=== PATIENT | male | born 1965 | race Caucasian/White ===

== ENCOUNTER 2017-01-17 06:17 | Emergency (ER) | payer MEDICAID ==
[~2017-01-17] VITALS: Ht 193 cm; Wt 115.5 kg
[~2017-01-17 06:17] MED LIST: BENZ2AMP4 PO; BP MED PO; HYDR-3237 PO; HYDR12.53 PO; HYDR50TA13 PO; LORA-446 PO; NAPR220C PO; PROP10TA PO; SIMV20TA3 PO; TRAM50TA2 PO
[2017-01-17 06:18] VITALS: BP 131/92
[2017-01-17] MEDS ORDERED: LORazepam 1MG TABLET ONE (06:50)
[2017-01-17] MEDS ORDERED: LORazepam 1MG TABLET PO ONE (07:00)
== END 2017-01-17 07:26 | disposition home or self-care (01) ==
LOC: ED 07:17
DX: F41.1 Generalized anxiety disorder (principal); E78.00 Pure hypercholesterolemia, unspecified; I10 Essential (primary) hypertension
CPT/HCPCS: 99284

== ENCOUNTER 2017-05-28 10:45 | Emergency (ER) | payer MEDICAID ==
[~2017-05-28] VITALS: Ht 193 cm; Wt 112.3 kg
[2017-05-28 10:46] VITALS: BP 118/80
[2017-05-28] MEDS ORDERED: LORazepam 1MG TABLET PO ONE (11:30)
[2017-05-28] MEDS ORDERED: LORazepam 1MG TABLET ONE (11:39)
== END 2017-05-28 11:44 | disposition home or self-care (01) ==
LOC: ED 11:38
DX: F41.1 Generalized anxiety disorder (principal); I10 Essential (primary) hypertension; E78.00 Pure hypercholesterolemia, unspecified
CPT/HCPCS: 99284

== ENCOUNTER 2017-06-16 15:52 | Inpatient (IN) | payer MEDICAID ==
[~2017-06-16] VITALS: Ht 193 cm; Wt 98.3 kg
[2017-06-16] MEDS ORDERED: QUET25TA5 PO (16:26)
[2017-06-16] MEDS ORDERED: ACETAMINOPHEN 500 MG TABLET ONE (16:37)
[2017-06-16] MEDS ORDERED: LORazepam 2 MG/ML, 1ML ONE (17:00)
[2017-06-16] MEDS ORDERED: ACETAMINOPHEN 500 MG TABLET PO ONE (17:00)
[2017-06-16] MEDS ORDERED: LORazepam 2 MG/ML, 1ML IVPush ONE (17:00)
[2017-06-16] MEDS ORDERED: SODIUM CHLORIDE 0.9% 1,000ML IVBOLUS ONE (17:00)
[2017-06-16] MEDS ORDERED: SODIUM CHLORIDE FLUSH 10ML SYR IVF ONE (17:00)
[2017-06-16 17:04] LABS: BASOPHILS # (AUTO) 0.05 x10^3/uL (0-0.1); BASOPHILS % (AUTO) 0 % (0-1); EOSINOPHILS # (AUTO) 0.01 x10^3/uL (0-0.4); EOSINOPHILS % (AUTO) 0 % (1-7); LYMPHOCYTES # (AUTO) 1.86 x10^3/uL (1-3.4); LYMPHOCYTES % (AUTO) 16 % (22-44); MD NO; MEAN CORPUSCULAR HEMOGLOBIN 31.8 pg (27.5-34.5); MEAN CORPUSCULAR HGB CONC 34.4 g/dL (33.2-36.2); MEAN CORPUSCULAR VOLUME 92.3 fL (81-97); MEAN PLATELET VOLUME 7.8 fL (7.4-10.4); MONOCYTES # (AUTO) 1.15 x10^3/uL (0.2-0.8); MONOCYTES % (AUTO) 10 % (2-9); NEUTROPHILS # (AUTO) 8.78 x10^3/uL (1.8-6.8); NEUTROPHILS % (AUTO) 74 % (42-75); PLATELET COUNT 261 x10^3/uL (130-400); RED BLOOD COUNT 4.38 x10^6/uL (4.38-5.82); RED CELL DISTRIBUTION WIDTH 12.6 % (9.4-14.8)
[2017-06-16] MEDS ORDERED: PIPERACILLIN/TAZO/PMX 3.375GM 50 ML ONE (17:10)
[2017-06-16 17:17] LABS: ALANINE AMINOTRANSFERASE 22 U/L (12-78); ALBUMIN 3.6 g/dL (3.4-5.0); ANION GAP 8 mmol/L (5-15); CALCIUM 8.8 mg/dL (8.5-10.1); CHLORIDE 105 mmol/L (98-107); CREATININE 1.02 mg/dL (0.7-1.3)
[2017-06-16 17:19] LABS: ALKALINE PHOSPHATASE 103 U/L (45-117); TOTAL PROTEIN 7.3 g/dL (6.4-8.2)
[2017-06-16] MEDS ORDERED: PIPERACILLIN/TAZO/PMX 3.375GM 50 ML IVPB ONE (17:30)
[2017-06-16] MEDS ORDERED: VANCOMYCIN PER PHARMACY MC ONE (17:30)
[2017-06-16] MEDS ORDERED: THIAMINE 100MG TABLET PO ONE (17:30)
[2017-06-16] MEDS ORDERED: VANCOMYCIN 2,000 MG in SODIUM CHLORIDE 0.9% 500 ML IV ONE (17:30)
[2017-06-16] MEDS ORDERED: THIAMINE 200 MG in SODIUM CHLORIDE 0.9% 50 ML IV ONE (17:30)
[2017-06-16] MEDS ORDERED: THIAMINE 100MG TABLET ONE (17:40)
[2017-06-16 18:32] LABS: HCT (SEDRATE) 40.4 % (39.2-51.8)
[2017-06-16 19:55] VITALS: BP 117/56
[2017-06-16] MEDS ORDERED: VANCOMYCIN PER PHARMACY MC PRN (20:00)
[2017-06-16] MEDS ORDERED: DIPHENHYDRAMINE 25 MG CAPSULE PO PRN (20:00)
[2017-06-16] MEDS ORDERED: hydrALAzine 20 MG/ML, 1ML IVPush PRN (20:00)
[2017-06-16] MEDS ORDERED: DOCUSATE 100 MG CAPSULE PO PRN (20:00)
[2017-06-16] MEDS ORDERED: PHARMACOKINETIC CONSULTATION MC ONE (20:30)
[2017-06-16] MEDS ORDERED: PHARMACOKINETIC MONITORING MC PRN (20:30)
[2017-06-16] MEDS: SODIUM CHLORIDE 0.9% 1,000 ML IV SCH (21:00)
[2017-06-16] MEDS ORDERED: PERMETHRIN CRM 5%, 60GM TP SCH (22:00)
[2017-06-16] MEDS: NICOTINE 7 MG/24 HR PATCH.TD24 TD SCH (22:00)
[2017-06-16] MEDS: ACETAMINOPHEN 325 MG TABLET PO PRN (22:31)
[2017-06-16] MEDS: LORazepam 1MG TABLET PO PRN (22:31)
[2017-06-16 23:14] LABS: MICROSCOPIC NOT IND
[2017-06-16 23:15] LABS: CULTURE INDICATED? NO
[2017-06-16 23:24] LABS: AMPHETAMINE SCREEN, URINE Negative (Negative); BARBITURATE SCREEN, URINE Negative (Negative); BENZODIAZEPINE SCREEN, URINE Negative (Negative); CANNABINOID SCREEN, URINE Negative (Negative); COCAINE SCREEN, URINE Negative (Negative); METHADONE SCREEN, URINE Negative (Negative); OPIATE SCREEN, URINE Negative (Negative)
[2017-06-17] MEDS: PIPERACILLIN/TAZO/PMX 3.375GM 50 ML IV SCH ×3 (00:54→17:42)
[2017-06-17 03:30] VITALS: BP 108/61
[2017-06-17] MEDS: SODIUM CHLORIDE 0.9% 1,000 ML IV SCH ×2 (03:54→17:43)
[2017-06-17 05:25] LABS: BASOPHILS # (AUTO) 0.02 x10^3/uL (0-0.1); BASOPHILS % (AUTO) 0 % (0-1); EOSINOPHILS # (AUTO) 0.07 x10^3/uL (0-0.4); EOSINOPHILS % (AUTO) 1 % (1-7); LYMPHOCYTES # (AUTO) 1.63 x10^3/uL (1-3.4); LYMPHOCYTES % (AUTO) 21 % (22-44); MD NO; MEAN CORPUSCULAR HEMOGLOBIN 31.9 pg (27.5-34.5); MEAN CORPUSCULAR HGB CONC 34.4 g/dL (33.2-36.2); MEAN CORPUSCULAR VOLUME 92.6 fL (81-97); MEAN PLATELET VOLUME 7.7 fL (7.4-10.4); MONOCYTES # (AUTO) 0.96 x10^3/uL (0.2-0.8); MONOCYTES % (AUTO) 12 % (2-9); NEUTROPHILS # (AUTO) 5.03 x10^3/uL (1.8-6.8); NEUTROPHILS % (AUTO) 65 % (42-75); PLATELET COUNT 192 x10^3/uL (130-400); RED BLOOD COUNT 3.75 x10^6/uL (4.38-5.82); RED CELL DISTRIBUTION WIDTH 12.9 % (9.4-14.8)
[2017-06-17 05:27] LABS: ANION GAP 8 mmol/L (5-15); CHLORIDE 109 mmol/L (98-107)
[2017-06-17 05:30] LABS: CREATININE 0.87 mg/dL (0.7-1.3)
[2017-06-17] MEDS: VANCOMYCIN 2,000 MG in SODIUM CHLORIDE 0.9% 500 ML IV SCH ×2 (05:36→21:20)
[2017-06-17] MEDS: PROPRANOLOL 10 MG TABLET PO SCH ×2 (06:29→18:00)
[2017-06-17 07:49] VITALS: BP 123/71
[2017-06-17] MEDS ORDERED: PERMETHRIN CRM 5%, 60GM TP SCH (12:30)
[2017-06-17 12:41] VITALS: BP 111/69
[2017-06-17 18:51] VITALS: BP 106/67
[2017-06-17] MEDS ORDERED: THIAMINE 100MG TABLET PO ONE (21:00)
[2017-06-17] MEDS: NICOTINE 7 MG/24 HR PATCH.TD24 TD SCH (22:00)
[2017-06-17] MEDS: ACETAMINOPHEN 325 MG TABLET PO PRN (23:20)
[2017-06-17] MEDS: LORazepam 1MG TABLET PO PRN (23:21)
[2017-06-18] MEDS: SODIUM CHLORIDE 0.9% 1,000 ML IV SCH ×3 (01:10→23:00)
[2017-06-18] MEDS: PIPERACILLIN/TAZO/PMX 3.375GM 50 ML IV SCH ×3 (01:10→20:13)
[2017-06-18 05:40] LABS: BASOPHILS # (AUTO) 0.04 x10^3/uL (0-0.1); BASOPHILS % (AUTO) 1 % (0-1); EOSINOPHILS # (AUTO) 0.07 x10^3/uL (0-0.4); EOSINOPHILS % (AUTO) 1 % (1-7); LYMPHOCYTES % (AUTO) 31 % (22-44); MD NO; MEAN CORPUSCULAR HEMOGLOBIN 31.7 pg (27.5-34.5); MEAN CORPUSCULAR HGB CONC 34.2 g/dL (33.2-36.2); MEAN CORPUSCULAR VOLUME 92.7 fL (81-97); MEAN PLATELET VOLUME 7.8 fL (7.4-10.4); MONOCYTES # (AUTO) 0.58 x10^3/uL (0.2-0.8); MONOCYTES % (AUTO) 11 % (2-9); NEUTROPHILS # (AUTO) 3.09 x10^3/uL (1.8-6.8); NEUTROPHILS % (AUTO) 56 % (42-75); PLATELET COUNT 187 x10^3/uL (130-400); RED BLOOD COUNT 3.83 x10^6/uL (4.38-5.82); RED CELL DISTRIBUTION WIDTH 12.8 % (9.4-14.8)
[2017-06-18 05:53] LABS: ALBUMIN 2.8 g/dL (3.4-5.0); ANION GAP 5 mmol/L (5-15); CHLORIDE 110 mmol/L (98-107)
[2017-06-18 05:56] LABS: ALANINE AMINOTRANSFERASE 17 U/L (12-78); ALKALINE PHOSPHATASE 78 U/L (45-117); BILIRUBIN,TOTAL 0.5 mg/dL (0.2-1.0); CREATININE 0.85 mg/dL (0.7-1.3); TOTAL PROTEIN 6.1 g/dL (6.4-8.2)
[2017-06-18] MEDS: PROPRANOLOL 10 MG TABLET PO SCH ×2 (06:28→17:50)
[2017-06-18 06:30] VITALS: BP 113/65
[2017-06-18 08:39] VITALS: BP 122/81
[2017-06-18] MEDS: VANCOMYCIN 2,000 MG in SODIUM CHLORIDE 0.9% 500 ML IV SCH ×2 (09:11→22:32)
[2017-06-18] MEDS: LORazepam 1MG TABLET PO PRN ×2 (09:11→22:30)
[2017-06-18 13:33] VITALS: BP 103/57
[2017-06-18] MEDS ORDERED: GADOBUTROL 10 MMOL/10 ML PFS ONE (17:13)
[2017-06-18 20:42] VITALS: BP 110/73
[2017-06-18] MEDS: NICOTINE 7 MG/24 HR PATCH.TD24 TD SCH (22:00)
[2017-06-18] MEDS: ACETAMINOPHEN 325 MG TABLET PO PRN (22:30)
[2017-06-18] MEDS: DIPHENHYDRAMINE 25 MG CAPSULE PO PRN (22:30)
[2017-06-19] MEDS: PIPERACILLIN/TAZO/PMX 3.375GM 50 ML IV SCH ×3 (04:50→20:30)
[2017-06-19 05:10] VITALS: BP 114/75
[2017-06-19 05:27] LABS: BASOPHILS # (AUTO) 0.04 x10^3/uL (0-0.1); BASOPHILS % (AUTO) 1 % (0-1); EOSINOPHILS % (AUTO) 2 % (1-7); LYMPHOCYTES % (AUTO) 34 % (22-44); MD NO; MEAN CORPUSCULAR HEMOGLOBIN 31.4 pg (27.5-34.5); MEAN CORPUSCULAR HGB CONC 34.1 g/dL (33.2-36.2); MEAN CORPUSCULAR VOLUME 91.9 fL (81-97); MEAN PLATELET VOLUME 7.9 fL (7.4-10.4); MONOCYTES # (AUTO) 0.44 x10^3/uL (0.2-0.8); MONOCYTES % (AUTO) 8 % (2-9); NEUTROPHILS % (AUTO) 55 % (42-75); PLATELET COUNT 199 x10^3/uL (130-400); RED BLOOD COUNT 3.82 x10^6/uL (4.38-5.82); RED CELL DISTRIBUTION WIDTH 12.3 % (9.4-14.8)
[2017-06-19 05:41] LABS: CHLORIDE 110 mmol/L (98-107)
[2017-06-19 05:46] LABS: ALANINE AMINOTRANSFERASE 20 U/L (12-78); ALBUMIN 2.8 g/dL (3.4-5.0); ALKALINE PHOSPHATASE 79 U/L (45-117); ANION GAP 5 mmol/L (5-15); BILIRUBIN,TOTAL 0.5 mg/dL (0.2-1.0); CREATININE 0.79 mg/dL (0.7-1.3); TOTAL PROTEIN 6.2 g/dL (6.4-8.2)
[2017-06-19] MEDS: PROPRANOLOL 10 MG TABLET PO SCH ×2 (06:17→18:21)
[2017-06-19] MEDS: SODIUM CHLORIDE 0.9% 1,000 ML IV SCH (07:00)
[2017-06-19] MEDS: VANCOMYCIN 2,000 MG in SODIUM CHLORIDE 0.9% 500 ML IV SCH ×2 (09:13→23:53)
[2017-06-19 09:35] VITALS: BP 123/80
[2017-06-19 12:20] VITALS: BP 129/84
[2017-06-19] MEDS: DIPHENHYDRAMINE 25 MG CAPSULE PO PRN ×2 (13:27→20:39)
[2017-06-19] MEDS: LORazepam 1MG TABLET PO PRN ×3 (13:27→22:06)
[2017-06-19] MEDS: ACETAMINOPHEN 325 MG TABLET PO PRN ×2 (14:39→20:39)
[2017-06-19] MEDS: NICOTINE 7 MG/24 HR PATCH.TD24 TD SCH (20:39)
[2017-06-19 20:43] VITALS: BP 140/90
[2017-06-20] MEDS: PIPERACILLIN/TAZO/PMX 3.375GM 50 ML IV SCH ×3 (04:18→20:49)
[2017-06-20 05:28] LABS: BASOPHILS # (AUTO) 0.06 x10^3/uL (0-0.1); BASOPHILS % (AUTO) 1 % (0-1); EOSINOPHILS # (AUTO) 0.18 x10^3/uL (0-0.4); EOSINOPHILS % (AUTO) 3 % (1-7); LYMPHOCYTES # (AUTO) 1.81 x10^3/uL (1-3.4); LYMPHOCYTES % (AUTO) 32 % (22-44); MD NO; MEAN CORPUSCULAR HEMOGLOBIN 31.7 pg (27.5-34.5); MEAN CORPUSCULAR HGB CONC 34.5 g/dL (33.2-36.2); MEAN CORPUSCULAR VOLUME 92.1 fL (81-97); MEAN PLATELET VOLUME 7.7 fL (7.4-10.4); MONOCYTES # (AUTO) 0.51 x10^3/uL (0.2-0.8); MONOCYTES % (AUTO) 9 % (2-9); NEUTROPHILS % (AUTO) 55 % (42-75); PLATELET COUNT 237 x10^3/uL (130-400); RED BLOOD COUNT 4.06 x10^6/uL (4.38-5.82); RED CELL DISTRIBUTION WIDTH 12.6 % (9.4-14.8)
[2017-06-20] MEDS: LORazepam 1MG TABLET PO PRN ×4 (05:40→22:15)
[2017-06-20] MEDS: PROPRANOLOL 10 MG TABLET PO SCH ×2 (05:40→18:23)
[2017-06-20 05:41] LABS: ANION GAP 8 mmol/L (5-15); CALCIUM 8.4 mg/dL (8.5-10.1); CHLORIDE 111 mmol/L (98-107); CREATININE 0.93 mg/dL (0.7-1.3)
[2017-06-20 08:43] VITALS: BP 139/72
[2017-06-20 12:49] VITALS: BP 110/71
[2017-06-20] MEDS: ACETAMINOPHEN 325 MG TABLET PO PRN (17:50)
[2017-06-20 18:10] VITALS: BP 130/91
[2017-06-20] MEDS: VANCOMYCIN 2,000 MG in SODIUM CHLORIDE 0.9% 500 ML IV SCH (18:23)
[2017-06-20 20:46] VITALS: BP 127/81
[2017-06-20] MEDS: NICOTINE 7 MG/24 HR PATCH.TD24 TD SCH (22:15)
[2017-06-21 01:48] VITALS: BP 120/75
[2017-06-21 05:06] VITALS: BP 123/88
[2017-06-21] MEDS: PIPERACILLIN/TAZO/PMX 3.375GM 50 ML IV SCH (05:09)
[2017-06-21] MEDS: PROPRANOLOL 10 MG TABLET PO SCH ×2 (05:10→18:00)
[2017-06-21 08:25] VITALS: BP 127/89
[2017-06-21] MEDS: LORazepam 1MG TABLET PO PRN ×3 (08:56→23:58)
[2017-06-21] MEDS: ACETAMINOPHEN 325 MG TABLET PO PRN ×3 (08:56→23:59)
[2017-06-21] MEDS: CEFTAROLINE 600 MG in SODIUM CHLORIDE 0.9% 100 ML IV SCH ×2 (10:09→18:26)
[2017-06-21] MEDS ORDERED: QUETIAPINE 100MG TABLET PO SCH (12:00)
[2017-06-21] MEDS: FLUOXETINE HCL 20 MG CAPSULE PO SCH (12:33)
[2017-06-21 13:53] VITALS: BP 104/66
[2017-06-21 19:02] VITALS: BP 113/77
[2017-06-21] MEDS: QUETIAPINE 100MG TABLET PO SCH (20:06)
[2017-06-21] MEDS: DIPHENHYDRAMINE 25 MG CAPSULE PO PRN ×2 (20:06→23:59)
[2017-06-21] MEDS: NICOTINE 7 MG/24 HR PATCH.TD24 TD SCH (22:33)
[2017-06-22] VITALS: BP 94/61
[2017-06-22 04:31] VITALS: BP 103/71
[2017-06-22] MEDS: PROPRANOLOL 10 MG TABLET PO SCH ×2 (05:42→17:49)
[2017-06-22] MEDS: LORazepam 1MG TABLET PO PRN ×3 (05:42→21:43)
[2017-06-22] MEDS: QUETIAPINE 100MG TABLET PO SCH ×3 (05:42→19:53)
[2017-06-22] MEDS: CEFTAROLINE 600 MG in SODIUM CHLORIDE 0.9% 100 ML IV SCH ×3 (05:42→21:41)
[2017-06-22] MEDS: FLUOXETINE HCL 20 MG CAPSULE PO SCH (08:52)
[2017-06-22 09:17] VITALS: BP 112/78
[2017-06-22 15:15] VITALS: BP 118/80
[2017-06-22 19:10] VITALS: BP 113/78
[2017-06-22] MEDS: DIPHENHYDRAMINE 25 MG CAPSULE PO PRN (19:53)
[2017-06-22] MEDS: NICOTINE 7 MG/24 HR PATCH.TD24 TD SCH (21:41)
[2017-06-23] VITALS: BP 106/71
[2017-06-23 05:56] VITALS: BP 98/75
[2017-06-23] MEDS: PROPRANOLOL 10 MG TABLET PO SCH ×2 (05:57→17:41)
[2017-06-23] MEDS: CEFTAROLINE 600 MG in SODIUM CHLORIDE 0.9% 100 ML IV SCH (05:57)
[2017-06-23] MEDS: QUETIAPINE 100MG TABLET PO SCH ×3 (05:58→20:29)
[2017-06-23] MEDS: LORazepam 1MG TABLET PO PRN (05:58)
[2017-06-23 07:20] VITALS: BP 128/88
[2017-06-23] MEDS: FLUOXETINE HCL 20 MG CAPSULE PO SCH (09:08)
[2017-06-23] MEDS: CEFAZOLIN PMX 2GM/50ML 50 ML IVPB SCH ×2 (10:48→17:29)
[2017-06-23 13:41] VITALS: BP 100/65
[2017-06-23 20:00] VITALS: BP 100/63
[2017-06-23] MEDS: ACETAMINOPHEN 325 MG TABLET PO PRN (20:29)
[2017-06-23] MEDS: NICOTINE 7 MG/24 HR PATCH.TD24 TD SCH (22:28)
[2017-06-24] MEDS: CEFAZOLIN PMX 2GM/50ML 50 ML IVPB SCH ×3 (01:38→17:42)
[2017-06-24 02:05] VITALS: BP 107/64
[2017-06-24 05:24] LABS: BASOPHILS # (AUTO) 0.05 x10^3/uL (0-0.1); BASOPHILS % (AUTO) 1 % (0-1); CHLORIDE 109 mmol/L (98-107); EOSINOPHILS % (AUTO) 4 % (1-7); LYMPHOCYTES # (AUTO) 2.12 x10^3/uL (1-3.4); LYMPHOCYTES % (AUTO) 37 % (22-44); MD NO; MEAN CORPUSCULAR HGB CONC 33.9 g/dL (33.2-36.2); MEAN CORPUSCULAR VOLUME 91.7 fL (81-97); MEAN PLATELET VOLUME 7.2 fL (7.4-10.4); MONOCYTES # (AUTO) 0.49 x10^3/uL (0.2-0.8); MONOCYTES % (AUTO) 9 % (2-9); NEUTROPHILS # (AUTO) 2.91 x10^3/uL (1.8-6.8); NEUTROPHILS % (AUTO) 51 % (42-75); PLATELET COUNT 268 x10^3/uL (130-400); RED BLOOD COUNT 4.55 x10^6/uL (4.38-5.82)
[2017-06-24 05:32] LABS: ALANINE AMINOTRANSFERASE 25 U/L (12-78); ALBUMIN 3.2 g/dL (3.4-5.0); ALKALINE PHOSPHATASE 89 U/L (45-117); ANION GAP 8 mmol/L (5-15); BILIRUBIN,TOTAL 0.8 mg/dL (0.2-1.0); C-REACTIVE PROTEIN, QUANT 0.21 mg/dL (0.02-0.49); CALCIUM 8.5 mg/dL (8.5-10.1); CREATININE 0.98 mg/dL (0.7-1.3); TOTAL PROTEIN 6.8 g/dL (6.4-8.2)
[2017-06-24 05:51] LABS: HCT (SEDRATE) 41.7 % (39.2-51.8)
[2017-06-24] MEDS: QUETIAPINE 100MG TABLET PO SCH ×3 (06:01→21:21)
[2017-06-24 06:04] VITALS: BP 125/87
[2017-06-24] MEDS: PROPRANOLOL 10 MG TABLET PO SCH ×2 (06:10→18:22)
[2017-06-24 07:10] VITALS: BP 107/74
[2017-06-24] MEDS: FLUOXETINE HCL 20 MG CAPSULE PO SCH (09:11)
[2017-06-24 12:43] VITALS: BP 114/75
[2017-06-24] MEDS: LORazepam 1MG TABLET PO PRN ×2 (12:57→19:03)
[2017-06-24 20:17] VITALS: BP 117/82
[2017-06-24] MEDS: NICOTINE 7 MG/24 HR PATCH.TD24 TD SCH (21:23)
[2017-06-25 01:14] VITALS: BP 115/76
[2017-06-25] MEDS: LORazepam 1MG TABLET PO PRN ×2 (01:26→09:11)
[2017-06-25] MEDS: CEFAZOLIN PMX 2GM/50ML 50 ML IVPB SCH ×3 (01:27→18:11)
[2017-06-25] MEDS: PROPRANOLOL 10 MG TABLET PO SCH ×2 (06:11→18:15)
[2017-06-25] MEDS: QUETIAPINE 100MG TABLET PO SCH ×3 (06:12→20:47)
[2017-06-25 06:13] VITALS: BP 128/89
[2017-06-25 07:07] VITALS: BP 124/83
[2017-06-25] MEDS: FLUOXETINE HCL 20 MG CAPSULE PO SCH (09:11)
[2017-06-25 13:15] VITALS: BP 114/76
[2017-06-25] MEDS ORDERED: LORazepam 1MG TABLET PO PRN (16:00)
[2017-06-25 19:45] VITALS: BP 106/73
[2017-06-25] MEDS: DIPHENHYDRAMINE 25 MG CAPSULE PO PRN (20:47)
[2017-06-25] MEDS: NICOTINE 7 MG/24 HR PATCH.TD24 TD SCH (20:47)
[2017-06-25] MEDS: ACETAMINOPHEN 325 MG TABLET PO PRN (20:51)
[2017-06-26 01:11] VITALS: BP 113/75
[2017-06-26] MEDS: CEFAZOLIN PMX 2GM/50ML 50 ML IVPB SCH ×2 (02:24→09:37)
[2017-06-26] MEDS: QUETIAPINE 100MG TABLET PO SCH (05:41)
[2017-06-26] MEDS: PROPRANOLOL 10 MG TABLET PO SCH (05:41)
[2017-06-26 07:12] VITALS: BP 108/70
[2017-06-26] MEDS: FLUOXETINE HCL 20 MG CAPSULE PO SCH (09:34)
[2017-06-26] MEDS ORDERED: LORazepam 1MG TABLET PO PRN (11:00)
== END 2017-06-26 13:10 | disposition left against medical advice (07) | DRG 540 ==
LOC: ED 17:47 → EDIP 18:58 → 4NOR 19:55
PROVIDERS: ADMIT Hospitalist; ATTEND Hospitalist
PROC: 02HV33Z Insertion of Infusion Device into Superior Vena Cava, Percutaneous Approach (ICD-10-PCS; principal; 2017-06-22)
PROC: B548ZZA Ultrasonography of Superior Vena Cava, Guidance (ICD-10-PCS; 2017-06-22)
DX: M86.172 Other acute osteomyelitis, left ankle and foot (principal); R78.81 Bacteremia; I11.9 Hypertensive heart disease without heart failure; F25.9 Schizoaffective disorder, unspecified; B86 Scabies; L97.519 Non-pressure chronic ulcer of other part of right foot with unspecified severity; D63.8 Anemia in other chronic diseases classified elsewhere; F10.239 Alcohol dependence with withdrawal, unspecified; F41.1 Generalized anxiety disorder; G89.29 Other chronic pain; L03.032 Cellulitis of left toe; L97.529 Non-pressure chronic ulcer of other part of left foot with unspecified severity; B95.7 Other staphylococcus as the cause of diseases classified elsewhere; B96.89 Other specified bacterial agents as the cause of diseases classified elsewhere; E78.00 Pure hypercholesterolemia, unspecified; F17.210 Nicotine dependence, cigarettes, uncomplicated; M19.90 Unspecified osteoarthritis, unspecified site; Z59.0 Homelessness; Z82.49 Family history of ischemic heart disease and other diseases of the circulatory system; Z83.3 Family history of diabetes mellitus; Z53.21 Procedure and treatment not carried out due to patient leaving prior to being seen by health care provider
CPT/HCPCS: 36415; 36569; 71045; 76937; 77001; 80048; 80053; 80202; 80307; 81003; 83605; 83735; 84100; 85025; 85651; 86140; 87040; 87070; 87077; 87147; 87186; 87205; 93005; 93922; 99285; A9585; J0690; J0712; J2543; J3370; C1751; J2060; J7030; J7040; Q0163

== ENCOUNTER 2017-10-17 17:07 | Inpatient (IN) | payer MEDICAID ==
[~2017-10-17] VITALS: Ht 193 cm; Wt 99.0 kg
[~2017-10-17 17:07] MED LIST changes: +QUET25TA5 PO
[2017-10-17] MEDS ORDERED: SODIUM CHLORIDE FLUSH 10ML SYR IVF ONE ×2 (17:30→19:00)
[2017-10-17 17:40] LABS: BASOPHILS # (AUTO) 0.02 x10^3/uL (0-0.1); BASOPHILS % (AUTO) 0 % (0-1); EOSINOPHILS # (AUTO) 0.21 x10^3/uL (0-0.4); EOSINOPHILS % (AUTO) 3 % (1-7); LYMPHOCYTES # (AUTO) 2.06 x10^3/uL (1-3.4); LYMPHOCYTES % (AUTO) 27 % (22-44); MD NO; MEAN CORPUSCULAR HEMOGLOBIN 30.8 pg (27.5-34.5); MEAN CORPUSCULAR VOLUME 90.6 fL (81-97); MEAN PLATELET VOLUME 7.7 fL (7.4-10.4); MONOCYTES # (AUTO) 0.77 x10^3/uL (0.2-0.8); MONOCYTES % (AUTO) 10 % (2-9); NEUTROPHILS # (AUTO) 4.51 x10^3/uL (1.8-6.8); NEUTROPHILS % (AUTO) 60 % (42-75); PLATELET COUNT 214 x10^3/uL (130-400); RED BLOOD COUNT 4.19 x10^6/uL (4.38-5.82)
[2017-10-17 17:49] LABS: ALBUMIN 3.3 g/dL (3.4-5.0); ANION GAP 7 mmol/L (5-15); CALCIUM 8.3 mg/dL (8.5-10.1); CHLORIDE 110 mmol/L (98-107); CREATININE 0.93 mg/dL (0.7-1.3)
[2017-10-17] MEDS ORDERED: PHARMACOKINETIC CONSULTATION MC ONE ×2 (19:00→23:45)
[2017-10-17] MEDS ORDERED: MORPHINE SULFATE 4 MG/ML, 1ML IVPush PRN (19:00)
[2017-10-17] MEDS ORDERED: KETOROLAC 30 MG/1 ML IVPush ONE (19:00)
[2017-10-17] MEDS ORDERED: VANCOMYCIN PER PHARMACY IV ONE (19:00)
[2017-10-17] MEDS ORDERED: VANCOMYCIN 2,000 MG in SODIUM CHLORIDE 0.9% 500 ML IV ONE (19:00)
[2017-10-17] MEDS ORDERED: SODIUM CHLORIDE 0.9% 1,000ML IVBOLUS ONE (19:00)
[2017-10-17 19:02] LABS: HCT (SEDRATE) 37.4 % (39.2-51.8)
[2017-10-17] MEDS ORDERED: KETOROLAC 30 MG/1 ML ONE (19:12)
[2017-10-17] MEDS ORDERED: MORPHINE SULFATE 4 MG/ML, 1ML ONE (19:13)
[2017-10-17 21:30] VITALS: BP 145/84
[2017-10-17] MEDS ORDERED: LABETALOL 5MG/ML, 20ML IVPush PRN (23:30)
[2017-10-17] MEDS ORDERED: BISACODYL 10 MG SUPP PR PRN (23:30)
[2017-10-17] MEDS ORDERED: VANCOMYCIN PER PHARMACY MC PRN (23:30)
[2017-10-17] MEDS ORDERED: ONDANSETRON 2MG/ML, 2ML IVPush PRN (23:30)
[2017-10-17] MEDS ORDERED: ONDANSETRON ODT 4 MG PO PRN (23:30)
[2017-10-17] MEDS ORDERED: POLYETHYLENE GLYCOL 17 GM PACKET PO PRN (23:30)
[2017-10-17] MEDS: ENOXAPARIN 40 MG/0.4 ML SQ SCH (23:30)
[2017-10-17] MEDS ORDERED: ENALAPRILAT 1.25 MG/ML, 2ML IVPush PRN (23:30)
[2017-10-17] MEDS ORDERED: PHARMACOKINETIC MONITORING MC PRN (23:45)
[2017-10-18 01:01] VITALS: BP 153/94
[2017-10-18 01:33] LABS: HEMOGLOBIN A1C 5.1 % (4.2-6.3)
[2017-10-18] MEDS: VANCOMYCIN 2,000 MG in SODIUM CHLORIDE 0.9% 500 ML IV SCH ×2 (05:53→17:45)
[2017-10-18 06:23] LABS: AMPHETAMINE SCREEN, URINE Negative (Negative); BARBITURATE SCREEN, URINE Negative (Negative); BENZODIAZEPINE SCREEN, URINE Negative (Negative); CANNABINOID SCREEN, URINE Negative (Negative); COCAINE SCREEN, URINE Negative (Negative); METHADONE SCREEN, URINE Negative (Negative); OPIATE SCREEN, URINE Positive (Negative)
[2017-10-18 06:39] VITALS: BP 133/74
[2017-10-18] MEDS ORDERED: LORazepam 2 MG/ML, 1ML IVPush ONE (09:30)
[2017-10-18] MEDS ORDERED: GADOBUTROL 10 MMOL/10 ML PFS ONE (09:55)
[2017-10-18] MEDS: PIPERACILLIN/TAZO/PMX 3.375GM 50 ML IV SCH ×3 (10:30→22:11)
[2017-10-18] MEDS: HYDROcodone/APAP 5/325 TABLET PO PRN ×3 (10:33→22:20)
[2017-10-18 14:00] VITALS: BP 145/91
[2017-10-18 19:53] VITALS: BP 139/78
[2017-10-18] MEDS: ENOXAPARIN 40 MG/0.4 ML SQ SCH (22:11)
[2017-10-19 01:12] VITALS: BP 137/80
[2017-10-19] MEDS: PIPERACILLIN/TAZO/PMX 3.375GM 50 ML IV SCH ×4 (04:02→23:08)
[2017-10-19] MEDS: VANCOMYCIN 2,000 MG in SODIUM CHLORIDE 0.9% 500 ML IV SCH ×2 (05:59→18:22)
[2017-10-19 06:12] LABS: ANION GAP 8 mmol/L (5-15); CALCIUM 7.9 mg/dL (8.5-10.1); CHLORIDE 111 mmol/L (98-107); CREATININE 0.78 mg/dL (0.7-1.3)
[2017-10-19 06:20] LABS: BASOPHILS # (AUTO) 0.04 x10^3/uL (0-0.1); BASOPHILS % (AUTO) 1 % (0-1); EOSINOPHILS # (AUTO) 0.25 x10^3/uL (0-0.4); EOSINOPHILS % (AUTO) 6 % (1-7); LYMPHOCYTES # (AUTO) 1.48 x10^3/uL (1-3.4); LYMPHOCYTES % (AUTO) 33 % (22-44); MD NO; MEAN CORPUSCULAR HGB CONC 33.9 g/dL (33.2-36.2); MEAN CORPUSCULAR VOLUME 91.3 fL (81-97); MEAN PLATELET VOLUME 7.7 fL (7.4-10.4); MONOCYTES # (AUTO) 0.49 x10^3/uL (0.2-0.8); MONOCYTES % (AUTO) 11 % (2-9); NEUTROPHILS % (AUTO) 49 % (42-75); PLATELET COUNT 164 x10^3/uL (130-400); RED BLOOD COUNT 3.78 x10^6/uL (4.38-5.82); RED CELL DISTRIBUTION WIDTH 13.9 % (9.4-14.8)
[2017-10-19 07:07] VITALS: BP 132/86
[2017-10-19] MEDS ORDERED: MIDAZOLAM 1 MG/ML, 2ML ONE ×2 (08:45→09:45)
[2017-10-19] MEDS ORDERED: FENTANYL PF 100 MCG/2ML ONE ×2 (08:45→09:30)
[2017-10-19] MEDS ORDERED: KETOROLAC 30 MG/1 ML ONE (08:46)
[2017-10-19] MEDS ORDERED: ONDANSETRON 2MG/ML, 2ML ONE (08:46)
[2017-10-19] MEDS ORDERED: PROPOFOL 10 MG/ML, 20ML ONE (08:46)
[2017-10-19] MEDS ORDERED: EPHEDRINE 50 MG/ML, 1ML IVPush PRN (09:30)
[2017-10-19] MEDS ORDERED: HALOPERIDOL 5 MG/ML IV PRN (09:30)
[2017-10-19] MEDS ORDERED: OXYcodone 5 MG/5 ML ORAL.SOL UDC ONE (09:30)
[2017-10-19] MEDS ORDERED: hydrALAzine 20 MG/ML, 1ML IV PRN (09:30)
[2017-10-19] MEDS ORDERED: ALBUTEROL SULFATE 2.5 MG/3 ML NPPB PRN (09:30)
[2017-10-19] MEDS ORDERED: PROMETHAZINE 25 MG/ML, 1ML IV PRN (09:30)
[2017-10-19] MEDS ORDERED: ALBUTEROL/IPRATROPIUM 2.5MG/0.5MG, 3 ML NPPB PRN (09:30)
[2017-10-19] MEDS ORDERED: MIDAZOLAM 1 MG/ML, 2ML IV PRN (09:30)
[2017-10-19] MEDS ORDERED: ACETAMINOPHEN 325 MG TABLET PO PRN (09:30)
[2017-10-19] MEDS ORDERED: ONDANSETRON ODT 8 MG PO PRN (09:30)
[2017-10-19] MEDS ORDERED: LABETALOL 5MG/ML, 20ML IV PRN (09:30)
[2017-10-19] MEDS ORDERED: HYDROcodone/APAP 7.5-325MG/15ML UDC PO PRN (09:30)
[2017-10-19] MEDS ORDERED: MEPERIDINE/PF 25MG/0.5ML IVPush PRN (09:30)
[2017-10-19] MEDS: FENTANYL PF 100 MCG/2ML IV PRN ×2 (09:33→09:39)
[2017-10-19] MEDS: OXYcodone 5 MG/5 ML ORAL.SOL UDC PO PRN ×2 (09:35→17:04)
[2017-10-19] MEDS ORDERED: HYDROmorphone 2 MG/ML, 1ML ONE (09:45)
[2017-10-19] MEDS: HYDROmorphone 1 MG/ML, 1ML IV PRN ×3 (09:58→10:15)
[2017-10-19 14:21] VITALS: BP 105/70
[2017-10-19 18:33] VITALS: BP 127/79
[2017-10-19] MEDS: HYDROcodone/APAP 5/325 TABLET PO PRN (23:08)
[2017-10-19] MEDS: ENOXAPARIN 40 MG/0.4 ML SQ SCH (23:08)
[2017-10-20 01:28] VITALS: BP 125/76
[2017-10-20] MEDS: PIPERACILLIN/TAZO/PMX 3.375GM 50 ML IV SCH ×4 (05:03→20:18)
[2017-10-20 06:00] LABS: BASOPHILS # (AUTO) 0.02 x10^3/uL (0-0.1); BASOPHILS % (AUTO) 1 % (0-1); EOSINOPHILS # (AUTO) 0.22 x10^3/uL (0-0.4); EOSINOPHILS % (AUTO) 5 % (1-7); LYMPHOCYTES # (AUTO) 1.46 x10^3/uL (1-3.4); LYMPHOCYTES % (AUTO) 34 % (22-44); MD NO; MEAN CORPUSCULAR HEMOGLOBIN 30.6 pg (27.5-34.5); MEAN CORPUSCULAR HGB CONC 33.9 g/dL (33.2-36.2); MEAN CORPUSCULAR VOLUME 90.2 fL (81-97); MEAN PLATELET VOLUME 7.4 fL (7.4-10.4); MONOCYTES # (AUTO) 0.43 x10^3/uL (0.2-0.8); MONOCYTES % (AUTO) 10 % (2-9); NEUTROPHILS # (AUTO) 2.22 x10^3/uL (1.8-6.8); NEUTROPHILS % (AUTO) 51 % (42-75); PLATELET COUNT 170 x10^3/uL (130-400); RED BLOOD COUNT 3.77 x10^6/uL (4.38-5.82); RED CELL DISTRIBUTION WIDTH 13.1 % (9.4-14.8)
[2017-10-20 06:01] LABS: ANION GAP 6 mmol/L (5-15); CALCIUM 8.2 mg/dL (8.5-10.1); CHLORIDE 111 mmol/L (98-107); CREATININE 0.84 mg/dL (0.7-1.3)
[2017-10-20 06:03] LABS: VANCOMYCIN,TROUGH 18.6 mcg/mL (5.0-10.0)
[2017-10-20] MEDS: VANCOMYCIN 2,000 MG in SODIUM CHLORIDE 0.9% 500 ML IV SCH ×2 (06:29→23:47)
[2017-10-20 07:22] VITALS: BP 138/78
[2017-10-20] MEDS: HYDROcodone/APAP 5/325 TABLET PO PRN (08:13)
[2017-10-20 13:07] VITALS: BP 166/95
[2017-10-20] MEDS ORDERED: LORazepam 2 MG/ML, 1ML IVPush ONE (13:30)
[2017-10-20 19:31] VITALS: BP 153/91
[2017-10-20] MEDS: ENOXAPARIN 40 MG/0.4 ML SQ SCH (20:18)
[2017-10-21] MEDS: PIPERACILLIN/TAZO/PMX 3.375GM 50 ML IV SCH ×2 (02:13→08:04)
[2017-10-21 02:17] VITALS: BP 148/83
[2017-10-21 04:36] LABS: BASOPHILS # (AUTO) 0.02 x10^3/uL (0-0.1); BASOPHILS % (AUTO) 1 % (0-1); EOSINOPHILS # (AUTO) 0.19 x10^3/uL (0-0.4); EOSINOPHILS % (AUTO) 5 % (1-7); LYMPHOCYTES # (AUTO) 1.61 x10^3/uL (1-3.4); LYMPHOCYTES % (AUTO) 39 % (22-44); MD NO; MEAN CORPUSCULAR HGB CONC 34.2 g/dL (33.2-36.2); MEAN CORPUSCULAR VOLUME 90.7 fL (81-97); MEAN PLATELET VOLUME 7.4 fL (7.4-10.4); MONOCYTES # (AUTO) 0.32 x10^3/uL (0.2-0.8); MONOCYTES % (AUTO) 8 % (2-9); NEUTROPHILS # (AUTO) 1.94 x10^3/uL (1.8-6.8); NEUTROPHILS % (AUTO) 48 % (42-75); PLATELET COUNT 180 x10^3/uL (130-400); RED BLOOD COUNT 3.85 x10^6/uL (4.38-5.82); RED CELL DISTRIBUTION WIDTH 13.6 % (9.4-14.8)
[2017-10-21 04:50] LABS: ALBUMIN 2.7 g/dL (3.4-5.0); ANION GAP 6 mmol/L (5-15); CALCIUM 8.3 mg/dL (8.5-10.1); CHLORIDE 110 mmol/L (98-107)
[2017-10-21 04:59] LABS: ALANINE AMINOTRANSFERASE 29 U/L (12-78); ALKALINE PHOSPHATASE 94 U/L (45-117); BILIRUBIN,TOTAL 0.7 mg/dL (0.2-1.0); CREATININE 0.85 mg/dL (0.7-1.3); TOTAL PROTEIN 6.1 g/dL (6.4-8.2)
[2017-10-21 07:00] VITALS: BP 163/98
[2017-10-21] MEDS: HYDROcodone/APAP 5/325 TABLET PO PRN ×2 (11:45→20:37)
[2017-10-21 12:46] VITALS: BP 164/92
[2017-10-21] MEDS ORDERED: LIDOCAINE-MPF 1%, 2ML ONE (16:08)
[2017-10-21] MEDS: VANCOMYCIN 2,000 MG in SODIUM CHLORIDE 0.9% 500 ML IV SCH (18:35)
[2017-10-21 19:05] VITALS: BP 156/93
[2017-10-21] MEDS: ENOXAPARIN 40 MG/0.4 ML SQ SCH (23:30)
[2017-10-22 01:43] VITALS: BP 155/83
[2017-10-22 07:00] VITALS: BP 147/79
[2017-10-22 09:01] VITALS: BP 138/86
[2017-10-22 12:13] VITALS: BP 157/94
[2017-10-22] MEDS: HYDROcodone/APAP 5/325 TABLET PO PRN (12:21)
[2017-10-22] MEDS: VANCOMYCIN 2,000 MG in SODIUM CHLORIDE 0.9% 500 ML IV SCH (13:10)
[2017-10-22 20:15] VITALS: BP 161/88
[2017-10-22] MEDS: ENOXAPARIN 40 MG/0.4 ML SQ SCH (20:49)
[2017-10-23 01:42] VITALS: BP 155/82
[2017-10-23] MEDS: VANCOMYCIN 2,100 MG in SODIUM CHLORIDE 0.9% 500 ML IV SCH ×2 (06:04→23:59)
[2017-10-23 07:03] VITALS: BP 165/93
[2017-10-23] MEDS: AMLODIPINE 5 MG TABLET PO SCH (11:13)
[2017-10-23] MEDS: HYDROcodone/APAP 5/325 TABLET PO PRN ×2 (13:05→22:16)
[2017-10-23 15:54] VITALS: BP 147/87
[2017-10-23 19:59] VITALS: BP 153/94
[2017-10-23] MEDS: ENOXAPARIN 40 MG/0.4 ML SQ SCH (21:00)
[2017-10-24 00:56] VITALS: BP 165/90
[2017-10-24 05:33] LABS: BASOPHILS # (AUTO) 0.05 x10^3/uL (0-0.1); BASOPHILS % (AUTO) 1 % (0-1); EOSINOPHILS # (AUTO) 0.21 x10^3/uL (0-0.4); EOSINOPHILS % (AUTO) 4 % (1-7); LYMPHOCYTES # (AUTO) 1.97 x10^3/uL (1-3.4); LYMPHOCYTES % (AUTO) 38 % (22-44); MD NO; MEAN CORPUSCULAR HEMOGLOBIN 30.8 pg (27.5-34.5); MEAN CORPUSCULAR HGB CONC 34.3 g/dL (33.2-36.2); MEAN CORPUSCULAR VOLUME 89.6 fL (81-97); MEAN PLATELET VOLUME 7.6 fL (7.4-10.4); MONOCYTES % (AUTO) 8 % (2-9); NEUTROPHILS # (AUTO) 2.55 x10^3/uL (1.8-6.8); NEUTROPHILS % (AUTO) 49 % (42-75); PLATELET COUNT 224 x10^3/uL (130-400); RED BLOOD COUNT 4.46 x10^6/uL (4.38-5.82); RED CELL DISTRIBUTION WIDTH 13.2 % (9.4-14.8)
[2017-10-24 05:41] LABS: ALBUMIN 3.2 g/dL (3.4-5.0); ANION GAP 5 mmol/L (5-15); CALCIUM 8.8 mg/dL (8.5-10.1); CHLORIDE 110 mmol/L (98-107); CREATININE 0.83 mg/dL (0.7-1.3)
[2017-10-24 07:34] VITALS: BP 147/84
[2017-10-24] MEDS: AMLODIPINE 5 MG TABLET PO SCH (07:51)
[2017-10-24 14:30] VITALS: BP 144/67
[2017-10-24] MEDS: VANCOMYCIN 2,100 MG in SODIUM CHLORIDE 0.9% 500 ML IV SCH (18:01)
[2017-10-24 18:54] VITALS: BP 147/92
[2017-10-24] MEDS: ENOXAPARIN 40 MG/0.4 ML SQ SCH (21:00)
[2017-10-24] MEDS: HYDROcodone/APAP 5/325 TABLET PO PRN (21:20)
[2017-10-25 01:31] VITALS: BP 140/88
[2017-10-25 05:14] LABS: ALBUMIN 3.4 g/dL (3.4-5.0); ANION GAP 8 mmol/L (5-15); CALCIUM 8.9 mg/dL (8.5-10.1); CHLORIDE 108 mmol/L (98-107)
[2017-10-25 06:47] VITALS: BP 146/99
[2017-10-25] MEDS: AMLODIPINE 5 MG TABLET PO SCH (08:02)
[2017-10-25] MEDS: VANCOMYCIN 2,100 MG in SODIUM CHLORIDE 0.9% 500 ML IV SCH (12:36)
[2017-10-25] MEDS: HYDROcodone/APAP 5/325 TABLET PO PRN ×2 (12:42→21:12)
[2017-10-25 13:34] VITALS: BP 131/86
[2017-10-25] MEDS: METRONIDAZOLE PMX 500MG/100ML 100 ML IV SCH (15:04)
[2017-10-25 20:01] VITALS: BP 126/82
[2017-10-25] MEDS: ENOXAPARIN 40 MG/0.4 ML SQ SCH (21:00)
[2017-10-26] MEDS: METRONIDAZOLE PMX 500MG/100ML 100 ML IV SCH ×3 (00:07→18:26)
[2017-10-26 01:35] VITALS: BP 113/71
[2017-10-26] MEDS: VANCOMYCIN 2,100 MG in SODIUM CHLORIDE 0.9% 500 ML IV SCH (05:42)
[2017-10-26] MEDS: HYDROcodone/APAP 5/325 TABLET PO PRN ×2 (08:07→15:01)
[2017-10-26] MEDS: AMLODIPINE 5 MG TABLET PO SCH (08:07)
[2017-10-26 08:09] VITALS: BP 124/78
[2017-10-26 14:00] VITALS: BP 127/79
[2017-10-26 19:48] VITALS: BP 125/79
[2017-10-26] MEDS: ENOXAPARIN 40 MG/0.4 ML SQ SCH (20:32)
[2017-10-27] MEDS: VANCOMYCIN 2,100 MG in SODIUM CHLORIDE 0.9% 500 ML IV SCH ×2 (00:35→18:29)
[2017-10-27 02:37] VITALS: BP 113/75
[2017-10-27] MEDS: METRONIDAZOLE PMX 500MG/100ML 100 ML IV SCH ×2 (02:45→10:47)
[2017-10-27 04:49] LABS: ALBUMIN 3.3 g/dL (3.4-5.0); ANION GAP 8 mmol/L (5-15); CALCIUM 8.8 mg/dL (8.5-10.1); CHLORIDE 109 mmol/L (98-107); CREATININE 0.82 mg/dL (0.7-1.3)
[2017-10-27 08:47] VITALS: BP 126/87
[2017-10-27] MEDS: AMLODIPINE 5 MG TABLET PO SCH (09:02)
[2017-10-27 15:03] VITALS: BP 121/71
[2017-10-27] MEDS: AMPICILLIN/SULBACTAM 3 GM in SODIUM CHLORIDE 0.9% 100 ML IV SCH ×2 (17:20→21:27)
[2017-10-27] MEDS: HYDROcodone/APAP 5/325 TABLET PO PRN (17:20)
[2017-10-27 19:20] VITALS: BP 118/78
[2017-10-27] MEDS: ENOXAPARIN 40 MG/0.4 ML SQ SCH (21:27)
[2017-10-28 03:00] VITALS: BP 126/78
[2017-10-28] MEDS: AMPICILLIN/SULBACTAM 3 GM in SODIUM CHLORIDE 0.9% 100 ML IV SCH ×4 (03:14→20:01)
[2017-10-28 05:47] LABS: BASOPHILS # (AUTO) 0.07 x10^3/uL (0-0.1); BASOPHILS % (AUTO) 2 % (0-1); EOSINOPHILS # (AUTO) 0.21 x10^3/uL (0-0.4); EOSINOPHILS % (AUTO) 4 % (1-7); LYMPHOCYTES # (AUTO) 2.32 x10^3/uL (1-3.4); LYMPHOCYTES % (AUTO) 47 % (22-44); MD NO; MEAN CORPUSCULAR HEMOGLOBIN 30.5 pg (27.5-34.5); MEAN CORPUSCULAR HGB CONC 34.3 g/dL (33.2-36.2); MEAN CORPUSCULAR VOLUME 89.1 fL (81-97); MEAN PLATELET VOLUME 7.6 fL (7.4-10.4); MONOCYTES # (AUTO) 0.35 x10^3/uL (0.2-0.8); MONOCYTES % (AUTO) 7 % (2-9); NEUTROPHILS # (AUTO) 2.02 x10^3/uL (1.8-6.8); NEUTROPHILS % (AUTO) 41 % (42-75); PLATELET COUNT 184 x10^3/uL (130-400); RED BLOOD COUNT 4.62 x10^6/uL (4.38-5.82)
[2017-10-28 05:52] LABS: ALBUMIN 3.4 g/dL (3.4-5.0); ANION GAP 9 mmol/L (5-15); C-REACTIVE PROTEIN, QUANT 0.07 mg/dL (0.02-0.49); CALCIUM 8.9 mg/dL (8.5-10.1); CHLORIDE 109 mmol/L (98-107); CREATININE 0.83 mg/dL (0.7-1.3)
[2017-10-28 06:20] LABS: HCT (SEDRATE) 39.9 % (39.2-51.8)
[2017-10-28 06:46] VITALS: BP 133/91
[2017-10-28] MEDS: AMLODIPINE 5 MG TABLET PO SCH (09:37)
[2017-10-28] MEDS: HYDROcodone/APAP 5/325 TABLET PO PRN ×2 (11:01→20:01)
[2017-10-28 13:06] VITALS: BP 119/79
[2017-10-28] MEDS: VANCOMYCIN 2,100 MG in SODIUM CHLORIDE 0.9% 500 ML IV SCH (13:13)
[2017-10-28 18:38] VITALS: BP 136/87
[2017-10-28] MEDS: ENOXAPARIN 40 MG/0.4 ML SQ SCH (20:01)
[2017-10-29 01:56] VITALS: BP 109/77
[2017-10-29] MEDS: AMPICILLIN/SULBACTAM 3 GM in SODIUM CHLORIDE 0.9% 100 ML IV SCH ×4 (03:54→21:59)
[2017-10-29 04:25] LABS: HCT (SEDRATE) 42.1 % (39.2-51.8)
[2017-10-29] MEDS: VANCOMYCIN 2,100 MG in SODIUM CHLORIDE 0.9% 500 ML IV SCH (06:09)
[2017-10-29 06:57] VITALS: BP 97/59
[2017-10-29] MEDS: AMLODIPINE 5 MG TABLET PO SCH (09:53)
[2017-10-29] MEDS: HYDROcodone/APAP 5/325 TABLET PO PRN ×3 (09:53→20:51)
[2017-10-29 13:35] VITALS: BP 124/84
[2017-10-29 19:07] VITALS: BP 117/75
[2017-10-29] MEDS: ENOXAPARIN 40 MG/0.4 ML SQ SCH (20:51)
[2017-10-30] MEDS: VANCOMYCIN 2,100 MG in SODIUM CHLORIDE 0.9% 500 ML IV SCH ×2 (00:02→18:45)
[2017-10-30 01:06] VITALS: BP 119/72
[2017-10-30] MEDS: AMPICILLIN/SULBACTAM 3 GM in SODIUM CHLORIDE 0.9% 100 ML IV SCH ×4 (04:28→23:55)
[2017-10-30 07:28] VITALS: BP 112/72
[2017-10-30] MEDS: AMLODIPINE 5 MG TABLET PO SCH (08:38)
[2017-10-30] MEDS: HYDROcodone/APAP 5/325 TABLET PO PRN ×3 (08:38→20:45)
[2017-10-30 13:19] VITALS: BP 115/78
[2017-10-30 19:07] VITALS: BP 112/75
[2017-10-30] MEDS: DIPHENHYDRAMINE 25 MG CAPSULE PO PRN (20:45)
[2017-10-30] MEDS: ENOXAPARIN 40 MG/0.4 ML SQ SCH (20:45)
[2017-10-31 01:01] VITALS: BP 131/62
[2017-10-31] MEDS: AMPICILLIN/SULBACTAM 3 GM in SODIUM CHLORIDE 0.9% 100 ML IV SCH ×4 (05:19→23:26)
[2017-10-31] MEDS: HYDROcodone/APAP 5/325 TABLET PO PRN ×3 (05:19→20:44)
[2017-10-31 06:19] LABS: HCT (SEDRATE) 42.1 % (39.2-51.8)
[2017-10-31 07:00] VITALS: BP 107/67
[2017-10-31] MEDS: AMLODIPINE 5 MG TABLET PO SCH (10:51)
[2017-10-31] MEDS: VANCOMYCIN 2,100 MG in SODIUM CHLORIDE 0.9% 500 ML IV SCH (12:10)
[2017-10-31 12:55] VITALS: BP 108/73
[2017-10-31 19:19] VITALS: BP 121/74
[2017-10-31] MEDS: ENOXAPARIN 40 MG/0.4 ML SQ SCH (20:44)
[2017-10-31] MEDS: DIPHENHYDRAMINE 25 MG CAPSULE PO PRN (20:44)
[2017-11-01 00:39] VITALS: BP 125/85
[2017-11-01] MEDS: AMPICILLIN/SULBACTAM 3 GM in SODIUM CHLORIDE 0.9% 100 ML IV SCH ×3 (05:05→21:20)
[2017-11-01] MEDS: VANCOMYCIN 2,100 MG in SODIUM CHLORIDE 0.9% 500 ML IV SCH (06:06)
[2017-11-01 07:22] VITALS: BP 109/68
[2017-11-01] MEDS: AMLODIPINE 5 MG TABLET PO SCH (09:55)
[2017-11-01] MEDS: HYDROcodone/APAP 5/325 TABLET PO PRN ×3 (10:06→21:20)
[2017-11-01 15:00] VITALS: BP 118/79
[2017-11-01 18:28] VITALS: BP 123/75
[2017-11-01] MEDS: DIPHENHYDRAMINE 25 MG CAPSULE PO PRN (21:20)
[2017-11-01] MEDS: ENOXAPARIN 40 MG/0.4 ML SQ SCH (21:20)
[2017-11-02] MEDS: VANCOMYCIN 2,100 MG in SODIUM CHLORIDE 0.9% 500 ML IV SCH ×2 (00:25→18:31)
[2017-11-02] MEDS: AMPICILLIN/SULBACTAM 3 GM in SODIUM CHLORIDE 0.9% 100 ML IV SCH ×4 (03:19→20:59)
[2017-11-02 03:26] VITALS: BP 108/82
[2017-11-02 05:14] LABS: CREATININE 0.83 mg/dL (0.7-1.3)
[2017-11-02 08:00] VITALS: BP 141/94
[2017-11-02] MEDS: HYDROcodone/APAP 5/325 TABLET PO PRN ×3 (09:20→20:59)
[2017-11-02 14:48] VITALS: BP 159/79
[2017-11-02] MEDS: DIPHENHYDRAMINE 25 MG CAPSULE PO PRN (19:49)
[2017-11-02] MEDS: ENOXAPARIN 40 MG/0.4 ML SQ SCH (19:49)
[2017-11-02 21:43] VITALS: BP 135/88
[2017-11-03 02:34] VITALS: BP 127/82
[2017-11-03] MEDS: HYDROcodone/APAP 5/325 TABLET PO PRN ×2 (03:50→09:12)
[2017-11-03] MEDS: AMPICILLIN/SULBACTAM 3 GM in SODIUM CHLORIDE 0.9% 100 ML IV SCH ×4 (03:50→21:01)
[2017-11-03 08:12] VITALS: BP 134/85
[2017-11-03] MEDS: QUETIAPINE 25MG TABLET PO SCH ×2 (10:19→21:02)
[2017-11-03] MEDS: PROPRANOLOL 20 MG TABLET PO SCH ×3 (10:19→21:01)
[2017-11-03] MEDS: LORazepam 0.5MG TABLET PO PRN ×3 (11:55→22:47)
[2017-11-03] MEDS: VANCOMYCIN 2,100 MG in SODIUM CHLORIDE 0.9% 500 ML IV SCH (11:56)
[2017-11-03 13:06] VITALS: BP 115/74
[2017-11-03 19:39] VITALS: BP 110/75
[2017-11-03] MEDS: ENOXAPARIN 40 MG/0.4 ML SQ SCH (21:02)
[2017-11-04 02:18] VITALS: BP 120/80
[2017-11-04] MEDS: AMPICILLIN/SULBACTAM 3 GM in SODIUM CHLORIDE 0.9% 100 ML IV SCH ×4 (03:27→19:48)
[2017-11-04 03:58] LABS: CREATININE 0.83 mg/dL (0.7-1.3)
[2017-11-04] MEDS: VANCOMYCIN 2,100 MG in SODIUM CHLORIDE 0.9% 500 ML IV SCH ×2 (06:10→23:40)
[2017-11-04] MEDS: PROPRANOLOL 20 MG TABLET PO SCH ×2 (08:23→19:46)
[2017-11-04] MEDS: QUETIAPINE 25MG TABLET PO SCH ×2 (08:24→20:00)
[2017-11-04] MEDS: LORazepam 0.5MG TABLET PO PRN ×2 (08:30→19:46)
[2017-11-04 08:34] VITALS: BP 127/62
[2017-11-04 12:30] VITALS: BP 107/74
[2017-11-04 19:43] VITALS: BP 116/74
[2017-11-04] MEDS: ENOXAPARIN 40 MG/0.4 ML SQ SCH (19:48)
[2017-11-04] MEDS: DIPHENHYDRAMINE 25 MG CAPSULE PO PRN (21:19)
[2017-11-05 02:49] VITALS: BP 108/71
[2017-11-05] MEDS: AMPICILLIN/SULBACTAM 3 GM in SODIUM CHLORIDE 0.9% 100 ML IV SCH ×4 (02:49→21:01)
[2017-11-05 07:58] VITALS: BP 112/76
[2017-11-05] MEDS: PROPRANOLOL 20 MG TABLET PO SCH ×2 (08:52→21:01)
[2017-11-05] MEDS: LORazepam 0.5MG TABLET PO PRN ×3 (08:52→21:12)
[2017-11-05] MEDS: QUETIAPINE 25MG TABLET PO SCH ×2 (08:52→21:01)
[2017-11-05 13:13] VITALS: BP 118/79
[2017-11-05] MEDS: VANCOMYCIN 2,100 MG in SODIUM CHLORIDE 0.9% 500 ML IV SCH (18:10)
[2017-11-05 20:33] VITALS: BP 121/79
[2017-11-05] MEDS: ENOXAPARIN 40 MG/0.4 ML SQ SCH (21:01)
[2017-11-06] MEDS: AMPICILLIN/SULBACTAM 3 GM in SODIUM CHLORIDE 0.9% 100 ML IV SCH ×4 (03:01→21:00)
[2017-11-06 03:02] VITALS: BP 110/74
[2017-11-06] MEDS: DIPHENHYDRAMINE 25 MG CAPSULE PO PRN ×2 (03:06→20:58)
[2017-11-06 06:54] VITALS: BP 116/78
[2017-11-06] MEDS: PROPRANOLOL 20 MG TABLET PO SCH ×2 (07:45→20:58)
[2017-11-06] MEDS: LORazepam 0.5MG TABLET PO PRN ×3 (07:45→20:58)
[2017-11-06] MEDS: QUETIAPINE 25MG TABLET PO SCH ×2 (07:45→20:59)
[2017-11-06] MEDS: VANCOMYCIN 2,100 MG in SODIUM CHLORIDE 0.9% 500 ML IV SCH (12:49)
[2017-11-06 13:28] VITALS: BP 118/75
[2017-11-06 20:32] VITALS: BP 132/87
[2017-11-06] MEDS: ENOXAPARIN 40 MG/0.4 ML SQ SCH (20:59)
[2017-11-07 01:47] VITALS: BP 99/64
[2017-11-07] MEDS: AMPICILLIN/SULBACTAM 3 GM in SODIUM CHLORIDE 0.9% 100 ML IV SCH ×4 (03:49→21:43)
[2017-11-07 05:40] LABS: BASOPHILS # (AUTO) 0.04 x10^3/uL (0-0.1); BASOPHILS % (AUTO) 1 % (0-1); EOSINOPHILS # (AUTO) 0.23 x10^3/uL (0-0.4); EOSINOPHILS % (AUTO) 4 % (1-7); LYMPHOCYTES # (AUTO) 2.91 x10^3/uL (1-3.4); LYMPHOCYTES % (AUTO) 47 % (22-44); MD NO; MEAN CORPUSCULAR HEMOGLOBIN 30.3 pg (27.5-34.5); MEAN CORPUSCULAR HGB CONC 33.9 g/dL (33.2-36.2); MEAN CORPUSCULAR VOLUME 89.3 fL (81-97); MEAN PLATELET VOLUME 8.1 fL (7.4-10.4); MONOCYTES # (AUTO) 0.46 x10^3/uL (0.2-0.8); MONOCYTES % (AUTO) 8 % (2-9); NEUTROPHILS # (AUTO) 2.51 x10^3/uL (1.8-6.8); NEUTROPHILS % (AUTO) 41 % (42-75); PLATELET COUNT 150 x10^3/uL (130-400); RED BLOOD COUNT 4.75 x10^6/uL (4.38-5.82); RED CELL DISTRIBUTION WIDTH 13.7 % (9.4-14.8)
[2017-11-07 05:52] LABS: ALANINE AMINOTRANSFERASE 42 U/L (12-78); ALBUMIN 3.5 g/dL (3.4-5.0); ANION GAP 5 mmol/L (5-15); CALCIUM 8.9 mg/dL (8.5-10.1); CHLORIDE 109 mmol/L (98-107); CREATININE 0.98 mg/dL (0.7-1.3)
[2017-11-07 05:55] LABS: ALKALINE PHOSPHATASE 85 U/L (45-117); BILIRUBIN,TOTAL 0.6 mg/dL (0.2-1.0); TOTAL PROTEIN 6.7 g/dL (6.4-8.2); VANCOMYCIN,TROUGH 13.1 mcg/mL (5.0-10.0)
[2017-11-07] MEDS: VANCOMYCIN 2,100 MG in SODIUM CHLORIDE 0.9% 500 ML IV SCH (06:05)
[2017-11-07 08:30] VITALS: BP 122/76
[2017-11-07] MEDS: LORazepam 0.5MG TABLET PO PRN ×2 (09:21→21:43)
[2017-11-07] MEDS: PROPRANOLOL 20 MG TABLET PO SCH ×2 (09:21→21:43)
[2017-11-07] MEDS: QUETIAPINE 25MG TABLET PO SCH ×2 (09:22→21:43)
[2017-11-07 14:30] VITALS: BP 136/75
[2017-11-07 20:01] VITALS: BP 126/71
[2017-11-07] MEDS: ENOXAPARIN 40 MG/0.4 ML SQ SCH (21:43)
[2017-11-07] MEDS: DIPHENHYDRAMINE 25 MG CAPSULE PO PRN (21:43)
[2017-11-08] MEDS: VANCOMYCIN 2,100 MG in SODIUM CHLORIDE 0.9% 500 ML IV SCH ×2 (00:05→18:11)
[2017-11-08 01:15] VITALS: BP 110/70
[2017-11-08] MEDS: AMPICILLIN/SULBACTAM 3 GM in SODIUM CHLORIDE 0.9% 100 ML IV SCH ×4 (03:15→21:17)
[2017-11-08 08:37] VITALS: BP 106/65
[2017-11-08] MEDS: LORazepam 0.5MG TABLET PO PRN ×2 (09:46→21:17)
[2017-11-08] MEDS: PROPRANOLOL 20 MG TABLET PO SCH ×2 (09:47→21:17)
[2017-11-08] MEDS: QUETIAPINE 25MG TABLET PO SCH ×2 (09:47→21:17)
[2017-11-08 13:30] VITALS: BP 121/79
[2017-11-08 19:16] VITALS: BP 123/71
[2017-11-08] MEDS: DIPHENHYDRAMINE 25 MG CAPSULE PO PRN (21:17)
[2017-11-08] MEDS: ENOXAPARIN 40 MG/0.4 ML SQ SCH (21:17)
[2017-11-09] MEDS: AMPICILLIN/SULBACTAM 3 GM in SODIUM CHLORIDE 0.9% 100 ML IV SCH ×3 (04:46→18:09)
[2017-11-09 08:10] VITALS: BP 118/79
[2017-11-09] MEDS: QUETIAPINE 25MG TABLET PO SCH ×2 (08:30→21:20)
[2017-11-09] MEDS: LORazepam 0.5MG TABLET PO PRN ×2 (08:30→22:07)
[2017-11-09] MEDS: PROPRANOLOL 20 MG TABLET PO SCH ×2 (08:31→21:20)
[2017-11-09] MEDS: VANCOMYCIN 2,100 MG in SODIUM CHLORIDE 0.9% 500 ML IV SCH (12:28)
[2017-11-09 15:46] VITALS: BP 122/83
[2017-11-09 19:05] VITALS: BP 138/93
[2017-11-09] MEDS: ENOXAPARIN 40 MG/0.4 ML SQ SCH (21:19)
[2017-11-09] MEDS: DOCUSATE 100 MG CAPSULE PO PRN (22:06)
[2017-11-09] MEDS ORDERED: PNEUMOCOCCAL 23 VACCINE IM-VACC ONE (23:00)
[2017-11-10] MEDS: AMPICILLIN/SULBACTAM 3 GM in SODIUM CHLORIDE 0.9% 100 ML IV SCH ×4 (00:01→17:57)
[2017-11-10 02:09] VITALS: BP 116/70
[2017-11-10] MEDS: VANCOMYCIN 2,100 MG in SODIUM CHLORIDE 0.9% 500 ML IV SCH (07:13)
[2017-11-10] MEDS: PROPRANOLOL 20 MG TABLET PO SCH ×2 (07:18→21:33)
[2017-11-10 08:00] VITALS: BP 121/82
[2017-11-10] MEDS: LORazepam 0.5MG TABLET PO PRN ×2 (09:13→21:47)
[2017-11-10] MEDS: QUETIAPINE 25MG TABLET PO SCH ×2 (09:13→21:33)
[2017-11-10 14:00] VITALS: BP_SYST 122; BP_SYST 134; BP_DIAS 62; BP_DIAS 87
[2017-11-10 18:55] VITALS: BP 127/79
[2017-11-10] MEDS: ENOXAPARIN 40 MG/0.4 ML SQ SCH (21:34)
[2017-11-10] MEDS: ACETAMINOPHEN 325 MG TABLET PO PRN (21:47)
[2017-11-11] MEDS: AMPICILLIN/SULBACTAM 3 GM in SODIUM CHLORIDE 0.9% 100 ML IV SCH ×4 (00:02→18:09)
[2017-11-11] MEDS: VANCOMYCIN 2,100 MG in SODIUM CHLORIDE 0.9% 500 ML IV SCH ×2 (01:03→19:08)
[2017-11-11 01:10] VITALS: BP 113/72
[2017-11-11] MEDS: PROPRANOLOL 20 MG TABLET PO SCH ×2 (07:58→21:35)
[2017-11-11] MEDS: QUETIAPINE 25MG TABLET PO SCH ×2 (07:58→21:37)
[2017-11-11] MEDS: LORazepam 0.5MG TABLET PO PRN ×2 (07:58→21:36)
[2017-11-11 08:07] VITALS: BP 116/75
[2017-11-11 14:00] VITALS: BP 134/87
[2017-11-11 19:39] VITALS: BP 134/86
[2017-11-11] MEDS: DOCUSATE 100 MG CAPSULE PO PRN (21:36)
[2017-11-11] MEDS: ACETAMINOPHEN 325 MG TABLET PO PRN (21:37)
[2017-11-11] MEDS: ENOXAPARIN 40 MG/0.4 ML SQ SCH (21:37)
[2017-11-12] MEDS: AMPICILLIN/SULBACTAM 3 GM in SODIUM CHLORIDE 0.9% 100 ML IV SCH ×4 (00:09→18:00)
[2017-11-12 02:40] VITALS: BP 146/79
[2017-11-12] MEDS: QUETIAPINE 25MG TABLET PO SCH ×2 (08:22→21:15)
[2017-11-12] MEDS: PROPRANOLOL 20 MG TABLET PO SCH ×2 (08:22→21:15)
[2017-11-12] MEDS: LORazepam 0.5MG TABLET PO PRN ×2 (08:22→21:15)
[2017-11-12 08:48] VITALS: BP 122/65
[2017-11-12] MEDS: VANCOMYCIN 2,100 MG in SODIUM CHLORIDE 0.9% 500 ML IV SCH (13:19)
[2017-11-12 14:41] VITALS: BP 119/62
[2017-11-12 20:55] VITALS: BP 145/84
[2017-11-12] MEDS: ENOXAPARIN 40 MG/0.4 ML SQ SCH (21:15)
[2017-11-13] MEDS: AMPICILLIN/SULBACTAM 3 GM in SODIUM CHLORIDE 0.9% 100 ML IV SCH
== END 2017-11-13 01:41 | disposition left against medical advice (07) | DRG 617 ==
LOC: ED 19:37 → EDIP 19:40 → 3NE 20:52
PROVIDERS: ADMIT Internal Medicine; ATTEND Hospitalist
PROC: 0Y6S0Z0 Detachment at Left 2nd Toe, Complete, Open Approach (ICD-10-PCS; principal; 2017-10-19 08:45)
PROC: 02HV33Z Insertion of Infusion Device into Superior Vena Cava, Percutaneous Approach (ICD-10-PCS; 2017-10-22)
PROC: B5181ZA Fluoroscopy of Superior Vena Cava using Low Osmolar Contrast, Guidance (ICD-10-PCS; 2017-10-22)
DX: E11.69 Type 2 diabetes mellitus with other specified complication (principal); E44.1 Mild protein-calorie malnutrition; L03.116 Cellulitis of left lower limb; M86.172 Other acute osteomyelitis, left ankle and foot; M84.675A Pathological fracture in other disease, left foot, initial encounter for fracture; D64.9 Anemia, unspecified; E11.65 Type 2 diabetes mellitus with hyperglycemia; Z68.26 Body mass index [BMI] 26.0-26.9, adult; E78.00 Pure hypercholesterolemia, unspecified; F17.210 Nicotine dependence, cigarettes, uncomplicated; F41.1 Generalized anxiety disorder; Z66 Do not resuscitate; B95.62 Methicillin resistant Staphylococcus aureus infection as the cause of diseases classified elsewhere; B95.7 Other staphylococcus as the cause of diseases classified elsewhere; I11.9 Hypertensive heart disease without heart failure; Z59.0 Homelessness; Z82.49 Family history of ischemic heart disease and other diseases of the circulatory system; Z89.412 Acquired absence of left great toe; Z91.14 Patient's other noncompliance with medication regimen; Z91.19 Patient's noncompliance with other medical treatment and regimen
CPT/HCPCS: 36415; 36569; 76937; 77001; 80048; 80053; 80202; 80307; 82040; 82565; 83036; 84145; 84520; 85025; 85651; 86140; 86141; 87040; 87070; 87075; 87076; 87077; 87147; 87186; 87205; 96365; 96375; A9585; J0295; J1170; J1650; J1885; J2250; J2405; J2543; J2704; J3010; J3370; J3490; Q0162; C1751; J2060; J7030; J7040; Q0163

== ENCOUNTER 2017-11-13 10:30 | Inpatient (IN) | payer MEDICAID ==
[~2017-11-13] VITALS: Ht 193 cm; Wt 102.2 kg
[2017-11-13] MEDS ORDERED: LORazepam 2 MG/ML, 1ML IVPush STA (11:03)
[2017-11-13] MEDS ORDERED: LORazepam 2 MG/ML, 1ML ONE (11:09)
[2017-11-13] MEDS ORDERED: SODIUM CHLORIDE FLUSH 10ML SYR IVF ONE (11:30)
[2017-11-13] MEDS ORDERED: SODIUM CHLORIDE 0.9% 1,000ML IVBOLUS ONE (11:30)
[2017-11-13 11:31] LABS: MEAN CORPUSCULAR HGB CONC 34.6 g/dL (33.2-36.2); MEAN CORPUSCULAR VOLUME 89.4 fL (81-97); MEAN PLATELET VOLUME 8.6 fL (7.4-10.4); PLATELET COUNT 201 x10^3/uL (130-400); RED BLOOD COUNT 5.14 x10^6/uL (4.38-5.82); RED CELL DISTRIBUTION WIDTH 13.6 % (9.4-14.8)
[2017-11-13 11:39] LABS: ALBUMIN 4.5 g/dL (3.4-5.0); ANION GAP 10 mmol/L (5-15); CALCIUM 9.8 mg/dL (8.5-10.1); CHLORIDE 106 mmol/L (98-107)
[2017-11-13 12:16] LABS: MD YES
[2017-11-13 12:21] LABS: <PLATELET ESTIMATE> ADEQUATE; <PLT MORPHOLOGY> NORMAL PLT MORPH; <RBC MORPHOLOGY> NORMAL; BAND#(MANUAL) 0.22 x10^3/uL; BANDS%(MANUAL) 2 % (0-7); BASOS#(MANUAL) 0.22 x10^3/uL (0-0.1); BASOS% (MANUAL) 2 % (0-1); EOS#(MANUAL) 0.22 x10^3/uL (0.0-0.4); EOS% (MANUAL) 2 % (1-7); LYMPH#(MANUAL) 1.96 x10^3/uL (1-3.4); LYMPHS% (MANUAL) 18 % (22-44); METAMYELOCYTES# (MANUAL) 0.44 x10^3/uL (0-0); METAMYELOCYTES% (MANUAL) 4 % (0-1); SEG#(MANUAL) 7.85 x10^3/uL (1.8-6.8); SEGS% (MANUAL) 72 % (42-75)
[2017-11-13 12:26] LABS: TROPONIN I < 0.015 ng/mL (0.000-0.045)
[2017-11-13] MEDS ORDERED: AMPICILLIN/SULBACTAM 3 GM in SODIUM CHLORIDE 0.9% 100 ML IV ONE (13:00)
[2017-11-13] MEDS ORDERED: VANCOMYCIN PER PHARMACY MC PRN ×2 (13:00→15:45)
[2017-11-13] MEDS ORDERED: PHARMACOKINETIC CONSULTATION MC ONE (13:00)
[2017-11-13] MEDS ORDERED: VANCOMYCIN 2,100 MG in SODIUM CHLORIDE 0.9% 500 ML IV ONE (13:00)
[2017-11-13 14:28] VITALS: BP 146/94
[2017-11-13] MEDS ORDERED: LABETALOL 5MG/ML, 20ML IVPush PRN (15:30)
[2017-11-13] MEDS ORDERED: ENALAPRILAT 1.25 MG/ML, 2ML IVPush PRN (15:30)
[2017-11-13] MEDS ORDERED: VANCOMYCIN 2,100 MG in SODIUM CHLORIDE 0.9% 500 ML IV SCH (15:30)
[2017-11-13] MEDS ORDERED: ACETAMINOPHEN 325 MG TABLET PO PRN (15:30)
[2017-11-13] MEDS ORDERED: BISACODYL 10 MG SUPP PR PRN (15:30)
[2017-11-13] MEDS ORDERED: HEPARIN 5,000 UNITS/ML, 1ML SQ SCH (15:30)
[2017-11-13] MEDS ORDERED: ONDANSETRON ODT 4 MG PO PRN (15:30)
[2017-11-13 15:51] LABS: HCT (SEDRATE) 45.9 % (39.2-51.8)
[2017-11-13] MEDS ORDERED: PHARMACOKINETIC MONITORING MC PRN (16:00)
[2017-11-13] MEDS: ENOXAPARIN 40 MG/0.4 ML SQ SCH (17:07)
[2017-11-13] MEDS: HYDROcodone/APAP 5/325 TABLET PO PRN ×2 (17:08→21:19)
[2017-11-13] MEDS: PROPRANOLOL 20 MG TABLET PO SCH (17:08)
[2017-11-13] MEDS: AMPICILLIN/SULBACTAM 3 GM in SODIUM CHLORIDE 0.9% 100 ML IV SCH (18:37)
[2017-11-13 20:28] VITALS: BP 137/90
[2017-11-13] MEDS: QUETIAPINE 25MG TABLET PO SCH (21:19)
[2017-11-14] MEDS: AMPICILLIN/SULBACTAM 3 GM in SODIUM CHLORIDE 0.9% 100 ML IV SCH ×4 (01:42→21:12)
[2017-11-14 01:44] VITALS: BP 127/70
[2017-11-14 05:56] LABS: BASOPHILS # (AUTO) 0.03 x10^3/uL (0-0.1); BASOPHILS % (AUTO) 1 % (0-1); EOSINOPHILS # (AUTO) 0.23 x10^3/uL (0-0.4); EOSINOPHILS % (AUTO) 4 % (1-7); LYMPHOCYTES # (AUTO) 2.67 x10^3/uL (1-3.4); LYMPHOCYTES % (AUTO) 47 % (22-44); MD NO; MEAN CORPUSCULAR HEMOGLOBIN 30.6 pg (27.5-34.5); MEAN CORPUSCULAR HGB CONC 34.3 g/dL (33.2-36.2); MEAN PLATELET VOLUME 8.4 fL (7.4-10.4); MONOCYTES # (AUTO) 0.54 x10^3/uL (0.2-0.8); MONOCYTES % (AUTO) 10 % (2-9); NEUTROPHILS # (AUTO) 2.23 x10^3/uL (1.8-6.8); NEUTROPHILS % (AUTO) 39 % (42-75); PLATELET COUNT 134 x10^3/uL (130-400); RED BLOOD COUNT 4.38 x10^6/uL (4.38-5.82); RED CELL DISTRIBUTION WIDTH 14.1 % (9.4-14.8)
[2017-11-14 05:57] LABS: CHLORIDE 110 mmol/L (98-107)
[2017-11-14 06:04] LABS: ALANINE AMINOTRANSFERASE 43 U/L (12-78); ALBUMIN 3.3 g/dL (3.4-5.0); ALKALINE PHOSPHATASE 88 U/L (45-117); ANION GAP 6 mmol/L (5-15); BILIRUBIN,TOTAL 0.8 mg/dL (0.2-1.0); CALCIUM 8.5 mg/dL (8.5-10.1); CREATININE 1.09 mg/dL (0.7-1.3); TOTAL PROTEIN 6.7 g/dL (6.4-8.2)
[2017-11-14] MEDS: PROPRANOLOL 20 MG TABLET PO SCH ×2 (06:41→16:48)
[2017-11-14 07:58] VITALS: BP 120/79
[2017-11-14] MEDS: QUETIAPINE 25MG TABLET PO SCH ×2 (09:01→21:11)
[2017-11-14] MEDS: VANCOMYCIN 2,100 MG in SODIUM CHLORIDE 0.9% 500 ML IV SCH (10:06)
[2017-11-14] MEDS: HYDROcodone/APAP 5/325 TABLET PO PRN ×2 (10:06→21:11)
[2017-11-14 12:48] VITALS: BP 113/76
[2017-11-14] MEDS: ENOXAPARIN 40 MG/0.4 ML SQ SCH (14:56)
[2017-11-14] MEDS: DOCUSATE 100 MG CAPSULE PO SCH (21:11)
[2017-11-14 21:29] VITALS: BP 132/84
[2017-11-15 02:44] VITALS: BP 132/79
[2017-11-15] MEDS: PROPRANOLOL 20 MG TABLET PO SCH ×2 (03:06→18:01)
[2017-11-15] MEDS: VANCOMYCIN 2,100 MG in SODIUM CHLORIDE 0.9% 500 ML IV SCH (03:09)
[2017-11-15 07:18] VITALS: BP 122/77
[2017-11-15] MEDS: DOCUSATE 100 MG CAPSULE PO SCH ×2 (09:00→21:00)
[2017-11-15] MEDS: HYDROcodone/APAP 5/325 TABLET PO PRN ×3 (10:11→20:06)
[2017-11-15] MEDS: QUETIAPINE 25MG TABLET PO SCH ×2 (10:12→21:00)
[2017-11-15] MEDS: AMPICILLIN/SULBACTAM 3 GM in SODIUM CHLORIDE 0.9% 100 ML IV SCH ×3 (10:20→21:00)
[2017-11-15 13:50] VITALS: BP 139/87
[2017-11-15] MEDS: ENOXAPARIN 40 MG/0.4 ML SQ SCH (15:48)
[2017-11-15] MEDS: LORazepam 0.5MG TABLET PO PRN (20:06)
[2017-11-15 20:07] VITALS: BP 126/73
[2017-11-15] MEDS ORDERED: VANCOMYCIN 2,300 MG in SODIUM CHLORIDE 0.9% 500 ML IV SCH (21:30)
[2017-11-15] MEDS: VANCOMYCIN 2,300 MG in SODIUM CHLORIDE 0.9% 500 ML IV SCH (21:54)
[2017-11-16] MEDS: HYDROcodone/APAP 5/325 TABLET PO PRN ×6 (00:13→23:05)
[2017-11-16 00:15] VITALS: BP 113/69
[2017-11-16] MEDS: AMPICILLIN/SULBACTAM 3 GM in SODIUM CHLORIDE 0.9% 100 ML IV SCH ×4 (03:40→22:23)
[2017-11-16] MEDS: LORazepam 0.5MG TABLET PO PRN (04:14)
[2017-11-16] MEDS: PROPRANOLOL 20 MG TABLET PO SCH ×2 (06:00→18:33)
[2017-11-16] MEDS: DOCUSATE 100 MG CAPSULE PO SCH ×2 (09:05→21:07)
[2017-11-16] MEDS: QUETIAPINE 25MG TABLET PO SCH ×2 (09:05→21:07)
[2017-11-16 09:06] VITALS: BP 145/95
[2017-11-16 15:11] VITALS: BP 161/98
[2017-11-16] MEDS: ENOXAPARIN 40 MG/0.4 ML SQ SCH (16:41)
[2017-11-16] MEDS: VANCOMYCIN 2,300 MG in SODIUM CHLORIDE 0.9% 500 ML IV SCH (16:41)
[2017-11-16 20:00] VITALS: BP 155/85
[2017-11-17 02:00] VITALS: BP 163/104
[2017-11-17] MEDS: AMPICILLIN/SULBACTAM 3 GM in SODIUM CHLORIDE 0.9% 100 ML IV SCH ×4 (04:12→22:58)
[2017-11-17] MEDS: PROPRANOLOL 20 MG TABLET PO SCH ×2 (05:13→16:46)
[2017-11-17] MEDS: HYDROcodone/APAP 5/325 TABLET PO PRN ×5 (05:13→21:00)
[2017-11-17] MEDS: DOCUSATE 100 MG CAPSULE PO SCH ×2 (09:00→20:57)
[2017-11-17] MEDS: QUETIAPINE 25MG TABLET PO SCH ×2 (09:05→20:57)
[2017-11-17] MEDS: LORazepam 0.5MG TABLET PO PRN ×3 (09:11→23:03)
[2017-11-17] MEDS: VANCOMYCIN 2,300 MG in SODIUM CHLORIDE 0.9% 500 ML IV SCH (12:46)
[2017-11-17 13:30] VITALS: BP 112/71
[2017-11-17] MEDS: ENOXAPARIN 40 MG/0.4 ML SQ SCH (16:21)
[2017-11-17 19:51] VITALS: BP 141/84
[2017-11-18] MEDS: HYDROcodone/APAP 5/325 TABLET PO PRN ×6 (01:03→22:50)
[2017-11-18] MEDS: PROPRANOLOL 20 MG TABLET PO SCH ×2 (05:13→17:10)
[2017-11-18] MEDS: AMPICILLIN/SULBACTAM 3 GM in SODIUM CHLORIDE 0.9% 100 ML IV SCH ×4 (05:13→22:50)
[2017-11-18 05:31] VITALS: BP 124/79
[2017-11-18] MEDS: VANCOMYCIN 2,300 MG in SODIUM CHLORIDE 0.9% 500 ML IV SCH ×2 (06:09→23:43)
[2017-11-18] MEDS: DOCUSATE 100 MG CAPSULE PO SCH ×2 (08:28→20:45)
[2017-11-18] MEDS: QUETIAPINE 25MG TABLET PO SCH ×2 (08:28→20:45)
[2017-11-18] MEDS: LORazepam 0.5MG TABLET PO PRN ×3 (08:28→23:43)
[2017-11-18 08:31] VITALS: BP 126/83
[2017-11-18 13:05] VITALS: BP 134/76
[2017-11-18] MEDS: ENOXAPARIN 40 MG/0.4 ML SQ SCH (16:54)
[2017-11-18 20:00] VITALS: BP 140/81
[2017-11-19 02:00] VITALS: BP 139/85
[2017-11-19] MEDS: PROPRANOLOL 20 MG TABLET PO SCH ×2 (05:10→18:00)
[2017-11-19] MEDS: AMPICILLIN/SULBACTAM 3 GM in SODIUM CHLORIDE 0.9% 100 ML IV SCH ×4 (05:10→22:43)
[2017-11-19] MEDS: HYDROcodone/APAP 5/325 TABLET PO PRN ×5 (05:30→22:43)
[2017-11-19 07:53] VITALS: BP 134/81
[2017-11-19] MEDS: QUETIAPINE 25MG TABLET PO SCH ×2 (09:32→20:37)
[2017-11-19] MEDS: LORazepam 0.5MG TABLET PO PRN ×3 (09:32→22:43)
[2017-11-19] MEDS: DOCUSATE 100 MG CAPSULE PO SCH ×2 (09:32→20:37)
[2017-11-19 12:09] VITALS: BP 122/78
[2017-11-19] MEDS: ENOXAPARIN 40 MG/0.4 ML SQ SCH (16:45)
[2017-11-19] MEDS: VANCOMYCIN 2,300 MG in SODIUM CHLORIDE 0.9% 500 ML IV SCH (18:33)
[2017-11-19 19:43] VITALS: BP 152/91
[2017-11-20] MEDS: HYDROcodone/APAP 5/325 TABLET PO PRN ×4 (02:39→14:50)
[2017-11-20 04:02] VITALS: BP 118/74
[2017-11-20] MEDS: LORazepam 0.5MG TABLET PO PRN ×4 (04:35→23:09)
[2017-11-20] MEDS: PROPRANOLOL 20 MG TABLET PO SCH ×2 (05:32→18:00)
[2017-11-20] MEDS: AMPICILLIN/SULBACTAM 3 GM in SODIUM CHLORIDE 0.9% 100 ML IV SCH ×4 (05:32→23:09)
[2017-11-20 05:33] VITALS: BP 134/84
[2017-11-20 07:44] VITALS: BP 142/87
[2017-11-20] MEDS: DOCUSATE 100 MG CAPSULE PO SCH ×2 (09:09→21:24)
[2017-11-20] MEDS: QUETIAPINE 25MG TABLET PO SCH ×2 (09:09→21:24)
[2017-11-20 12:25] VITALS: BP 131/88
[2017-11-20] MEDS: VANCOMYCIN 2,300 MG in SODIUM CHLORIDE 0.9% 500 ML IV SCH (12:29)
[2017-11-20] MEDS: ENOXAPARIN 40 MG/0.4 ML SQ SCH (16:56)
[2017-11-20 19:49] VITALS: BP 154/90
[2017-11-21 02:53] VITALS: BP 128/83
[2017-11-21] MEDS: AMPICILLIN/SULBACTAM 3 GM in SODIUM CHLORIDE 0.9% 100 ML IV SCH ×3 (05:03→17:23)
[2017-11-21] MEDS: PROPRANOLOL 20 MG TABLET PO SCH (06:00)
[2017-11-21] MEDS: VANCOMYCIN 2,300 MG in SODIUM CHLORIDE 0.9% 500 ML IV SCH (06:20)
[2017-11-21] MEDS: LORazepam 0.5MG TABLET PO PRN ×3 (06:53→20:33)
[2017-11-21 07:24] VITALS: BP 156/95
[2017-11-21] MEDS: HYDROcodone/APAP 5/325 TABLET PO PRN ×3 (08:35→17:23)
[2017-11-21] MEDS: QUETIAPINE 25MG TABLET PO SCH ×2 (08:35→20:50)
[2017-11-21] MEDS: DOCUSATE 100 MG CAPSULE PO SCH ×2 (08:44→20:50)
[2017-11-21 12:07] VITALS: BP 157/93
[2017-11-21] MEDS: ENOXAPARIN 40 MG/0.4 ML SQ SCH (17:23)
[2017-11-21 20:15] VITALS: BP 161/98
== END 2017-11-21 22:15 | disposition left against medical advice (07) | DRG 638 ==
LOC: ED 12:50 → EDIP 12:51 → ED 13:06 → 4WST 14:04
PROVIDERS: ADMIT Internal Medicine; ATTEND Internal Medicine
DX: E11.69 Type 2 diabetes mellitus with other specified complication (principal); E44.1 Mild protein-calorie malnutrition; L03.116 Cellulitis of left lower limb; M86.172 Other acute osteomyelitis, left ankle and foot; M84.478A Pathological fracture, left toe(s), initial encounter for fracture; D64.9 Anemia, unspecified; E11.65 Type 2 diabetes mellitus with hyperglycemia; Z68.27 Body mass index [BMI] 27.0-27.9, adult; E78.00 Pure hypercholesterolemia, unspecified; Z53.21 Procedure and treatment not carried out due to patient leaving prior to being seen by health care provider; F17.210 Nicotine dependence, cigarettes, uncomplicated; E86.0 Dehydration; F41.1 Generalized anxiety disorder; I10 Essential (primary) hypertension; Z59.0 Homelessness; Z89.412 Acquired absence of left great toe; Z91.14 Patient's other noncompliance with medication regimen; Z82.49 Family history of ischemic heart disease and other diseases of the circulatory system
CPT/HCPCS: 36415; 71045; 80048; 80053; 80202; 82040; 84484; 85025; 85651; 93005; 96374; 96375; 99285; J0295; J1650; J3370; Q0162; J2060; J7030; J7040

== ENCOUNTER 2017-11-28 12:19 | Emergency (ER) | payer MEDICAID ==
[~2017-11-28] VITALS: Ht 193 cm; Wt 103.8 kg
[2017-11-28 12:26] VITALS: BP 147/95
[2017-11-28] MEDS ORDERED: OXYcodone/APAP 5/325MG TABLET PO ONE (13:00)
== END 2017-11-28 14:56 | disposition home or self-care (01) ==
LOC: ED 13:55
DX: L76.22 Postprocedural hemorrhage of skin and subcutaneous tissue following other procedure (principal); E11.9 Type 2 diabetes mellitus without complications; E78.00 Pure hypercholesterolemia, unspecified; I10 Essential (primary) hypertension
CPT/HCPCS: 99284

== ENCOUNTER 2017-12-02 16:31 | Emergency (ER) | payer MEDICAID ==
[~2017-12-02] VITALS: Ht 193 cm; Wt 107.0 kg
[2017-12-02 16:44] VITALS: BP 165/104
[2017-12-02] MEDS ORDERED: ACETAMINOPHEN 325 MG TABLET PO ONE (18:00)
== END 2017-12-02 18:07 | disposition home or self-care (01) ==
LOC: ED 17:50
DX: G89.29 Other chronic pain (principal); M79.672 Pain in left foot; E11.9 Type 2 diabetes mellitus without complications; I10 Essential (primary) hypertension; E78.00 Pure hypercholesterolemia, unspecified; Z89.412 Acquired absence of left great toe; Z89.422 Acquired absence of other left toe(s); Z72.89 Other problems related to lifestyle; Z91.14 Patient's other noncompliance with medication regimen
CPT/HCPCS: 99283

== ENCOUNTER 2017-12-20 16:46 | Inpatient (IN) | payer MEDICAID ==
[~2017-12-20] VITALS: Ht 193 cm; Wt 111.5 kg
[2017-12-20] MEDS ORDERED: LIDOCAINE 1%, 10ML INFIL ONE (17:00)
[2017-12-20] MEDS ORDERED: LIDOCAINE-MPF 2%, 2ML ONE (17:12)
[2017-12-20] MEDS ORDERED: MORPHINE SULFATE 4 MG/ML, 1ML IVPush PRN (18:00)
[2017-12-20] MEDS ORDERED: AMPICILLIN/SULBACTAM 3 GM in SODIUM CHLORIDE 0.9% 100 ML IV ONE (18:00)
[2017-12-20] MEDS ORDERED: SODIUM CHLORIDE FLUSH 10ML SYR IVF ONE (18:00)
[2017-12-20] MEDS ORDERED: MORPHINE SULFATE 4 MG/ML, 1ML ONE (18:03)
[2017-12-20 18:16] LABS: BASOPHILS # (AUTO) 0.06 x10^3/uL (0-0.1); BASOPHILS % (AUTO) 1 % (0-1); EOSINOPHILS # (AUTO) 0.13 x10^3/uL (0-0.4); EOSINOPHILS % (AUTO) 2 % (1-7); LYMPHOCYTES # (AUTO) 2.44 x10^3/uL (1-3.4); LYMPHOCYTES % (AUTO) 32 % (22-44); MD NO; MEAN CORPUSCULAR HEMOGLOBIN 30.9 pg (27.5-34.5); MEAN CORPUSCULAR HGB CONC 34.4 g/dL (33.2-36.2); MEAN CORPUSCULAR VOLUME 89.9 fL (81-97); MEAN PLATELET VOLUME 7.8 fL (7.4-10.4); MONOCYTES # (AUTO) 0.52 x10^3/uL (0.2-0.8); MONOCYTES % (AUTO) 7 % (2-9); NEUTROPHILS % (AUTO) 58 % (42-75); PLATELET COUNT 218 x10^3/uL (130-400); RED BLOOD COUNT 4.48 x10^6/uL (4.38-5.82)
[2017-12-20 18:25] LABS: ALBUMIN 3.6 g/dL (3.4-5.0); ANION GAP 8 mmol/L (5-15); CALCIUM 8.8 mg/dL (8.5-10.1); CHLORIDE 108 mmol/L (98-107); CREATININE 0.85 mg/dL (0.7-1.3)
[2017-12-20] MEDS ORDERED: METFORMIN (18:50)
[2017-12-20] MEDS ORDERED: METFO (18:50)
[2017-12-20] MEDS ORDERED: ONDANSETRON 2MG/ML, 2ML IVPush PRN (19:30)
[2017-12-20] MEDS ORDERED: ACETAMINOPHEN 325 MG TABLET PO PRN (19:30)
[2017-12-20] MEDS ORDERED: BISACODYL 10 MG SUPP PR PRN (19:30)
[2017-12-20] MEDS ORDERED: POLYETHYLENE GLYCOL 17 GM PACKET PO PRN (19:30)
[2017-12-20] MEDS ORDERED: VANCOMYCIN PER PHARMACY MC PRN (19:30)
[2017-12-20 19:43] LABS: HEMOGLOBIN A1C 5.4 % (4.2-6.3)
[2017-12-20 20:26] LABS: HCT (SEDRATE) 40.2 % (39.2-51.8)
[2017-12-20] MEDS ORDERED: HYDROcodone/APAP 5/325 TABLET ONE (20:42)
[2017-12-20] MEDS: NICOTINE 7 MG/24 HR PATCH.TD24 TD SCH (20:45)
[2017-12-20] MEDS: KETOROLAC 30 MG/1 ML IV PRN (20:50)
[2017-12-20] MEDS: DIPHENHYDRAMINE 25 MG CAPSULE PO PRN (20:50)
[2017-12-20] MEDS: metFORMIN 500 MG TABLET PO SCH (20:50)
[2017-12-20] MEDS: HEPARIN 5,000 UNITS/ML, 1ML SQ SCH (20:50)
[2017-12-20] MEDS: HYDROcodone/APAP 5/325 TABLET PO PRN (20:50)
[2017-12-20] MEDS: PROPRANOLOL 20 MG TABLET PO SCH (20:51)
[2017-12-20] MEDS ORDERED: PHARMACOKINETIC MONITORING MC PRN (21:00)
[2017-12-20] MEDS ORDERED: PHARMACOKINETIC CONSULTATION MC ONE (21:00)
[2017-12-20] MEDS ORDERED: VANCOMYCIN 2,000 MG in SODIUM CHLORIDE 0.9% 500 ML IV SCH (21:00)
[2017-12-20] MEDS: SODIUM CHLORIDE FLUSH 10ML SYR IVF SCH (22:49)
[2017-12-20] MEDS: PIPERACILLIN/TAZO/PMX 3.375GM 50 ML IV SCH (22:49)
[2017-12-21 00:53] VITALS: BP 116/72
[2017-12-21 02:01] VITALS: BP 177/99
[2017-12-21] MEDS: HYDROcodone/APAP 5/325 TABLET PO PRN ×4 (02:59→22:24)
[2017-12-21] MEDS: KETOROLAC 30 MG/1 ML IV PRN ×4 (02:59→22:24)
[2017-12-21] MEDS: PIPERACILLIN/TAZO/PMX 3.375GM 50 ML IV SCH ×2 (05:17→12:25)
[2017-12-21] MEDS: HEPARIN 5,000 UNITS/ML, 1ML SQ SCH ×3 (05:17→21:14)
[2017-12-21 05:31] LABS: BASOPHILS # (AUTO) 0.05 x10^3/uL (0-0.1); BASOPHILS % (AUTO) 1 % (0-1); EOSINOPHILS # (AUTO) 0.25 x10^3/uL (0-0.4); EOSINOPHILS % (AUTO) 4 % (1-7); LYMPHOCYTES # (AUTO) 2.85 x10^3/uL (1-3.4); LYMPHOCYTES % (AUTO) 47 % (22-44); MD NO; MEAN CORPUSCULAR HEMOGLOBIN 30.3 pg (27.5-34.5); MEAN CORPUSCULAR HGB CONC 33.4 g/dL (33.2-36.2); MEAN CORPUSCULAR VOLUME 90.7 fL (81-97); MEAN PLATELET VOLUME 8.1 fL (7.4-10.4); MONOCYTES # (AUTO) 0.58 x10^3/uL (0.2-0.8); MONOCYTES % (AUTO) 10 % (2-9); NEUTROPHILS # (AUTO) 2.31 x10^3/uL (1.8-6.8); NEUTROPHILS % (AUTO) 38 % (42-75); PLATELET COUNT 180 x10^3/uL (130-400); RED BLOOD COUNT 4.15 x10^6/uL (4.38-5.82); RED CELL DISTRIBUTION WIDTH 13.8 % (9.4-14.8)
[2017-12-21 05:46] LABS: CHLORIDE 108 mmol/L (98-107)
[2017-12-21 05:54] LABS: ALANINE AMINOTRANSFERASE 28 U/L (12-78); ALBUMIN 3.1 g/dL (3.4-5.0); ALKALINE PHOSPHATASE 136 U/L (45-117); ANION GAP 6 mmol/L (5-15); BILIRUBIN,TOTAL 0.7 mg/dL (0.2-1.0); CALCIUM 8.3 mg/dL (8.5-10.1); CREATININE 0.94 mg/dL (0.7-1.3); TOTAL PROTEIN 6.4 g/dL (6.4-8.2)
[2017-12-21] MEDS: SODIUM CHLORIDE FLUSH 10ML SYR IVF SCH ×2 (09:00→21:21)
[2017-12-21] MEDS ORDERED: GADOBUTROL 10 MMOL/10 ML PFS ONE (09:19)
[2017-12-21] MEDS: metFORMIN 500 MG TABLET PO SCH ×2 (10:14→16:06)
[2017-12-21] MEDS: SENNA/DOCUSATE TABLET PO SCH (10:14)
[2017-12-21] MEDS: PROPRANOLOL 20 MG TABLET PO SCH ×2 (10:15→21:21)
[2017-12-21] MEDS ORDERED: AMPICILLIN/SULBACTAM 3 GM in SODIUM CHLORIDE 0.9% 100 ML IV SCH (13:00)
[2017-12-21] MEDS ORDERED: CEFAZOLIN 1,000 MG IV SCH (13:00)
[2017-12-21] MEDS: CEFAZOLIN 2,000 MG in SODIUM CHLORIDE 0.9% 50 ML IVPB SCH ×2 (16:05→23:49)
[2017-12-21] MEDS: VANCOMYCIN 2,300 MG in SODIUM CHLORIDE 0.9% 500 ML IV SCH (17:33)
[2017-12-21 19:00] VITALS: BP 122/76
[2017-12-21] MEDS: NICOTINE 7 MG/24 HR PATCH.TD24 TD SCH (20:45)
[2017-12-21] MEDS: DIPHENHYDRAMINE 25 MG CAPSULE PO PRN (21:21)
[2017-12-22 04:30] LABS: BASOPHILS # (AUTO) 0.04 x10^3/uL (0-0.1); BASOPHILS % (AUTO) 1 % (0-1); EOSINOPHILS # (AUTO) 0.42 x10^3/uL (0-0.4); EOSINOPHILS % (AUTO) 9 % (1-7); LYMPHOCYTES % (AUTO) 39 % (22-44); MD NO; MEAN CORPUSCULAR HEMOGLOBIN 30.2 pg (27.5-34.5); MEAN CORPUSCULAR HGB CONC 33.8 g/dL (33.2-36.2); MEAN CORPUSCULAR VOLUME 89.3 fL (81-97); MEAN PLATELET VOLUME 7.9 fL (7.4-10.4); MONOCYTES # (AUTO) 0.43 x10^3/uL (0.2-0.8); MONOCYTES % (AUTO) 9 % (2-9); NEUTROPHILS % (AUTO) 42 % (42-75); PLATELET COUNT 164 x10^3/uL (130-400); RED BLOOD COUNT 4.18 x10^6/uL (4.38-5.82)
[2017-12-22 04:32] LABS: ANION GAP 7 mmol/L (5-15); CALCIUM 7.9 mg/dL (8.5-10.1); CHLORIDE 112 mmol/L (98-107)
[2017-12-22 04:34] LABS: CREATININE 0.88 mg/dL (0.7-1.3)
[2017-12-22] MEDS: HYDROcodone/APAP 5/325 TABLET PO PRN ×4 (04:45→23:01)
[2017-12-22] MEDS: HEPARIN 5,000 UNITS/ML, 1ML SQ SCH ×3 (04:45→20:19)
[2017-12-22] MEDS: KETOROLAC 30 MG/1 ML IV PRN ×4 (04:45→23:01)
[2017-12-22 07:25] VITALS: BP 113/74
[2017-12-22] MEDS: CEFAZOLIN 2,000 MG in SODIUM CHLORIDE 0.9% 50 ML IVPB SCH ×3 (08:46→23:37)
[2017-12-22] MEDS: metFORMIN 500 MG TABLET PO SCH ×2 (08:46→16:36)
[2017-12-22] MEDS: PROPRANOLOL 20 MG TABLET PO SCH ×2 (08:46→20:19)
[2017-12-22] MEDS: SENNA/DOCUSATE TABLET PO SCH (08:46)
[2017-12-22] MEDS: SODIUM CHLORIDE FLUSH 10ML SYR IVF SCH ×2 (08:47→20:20)
[2017-12-22] MEDS: VANCOMYCIN 2,300 MG in SODIUM CHLORIDE 0.9% 500 ML IV SCH (10:44)
[2017-12-22] MEDS: DIPHENHYDRAMINE 25 MG CAPSULE PO PRN ×2 (13:17→23:00)
[2017-12-22 13:28] VITALS: BP 109/70
[2017-12-22] MEDS ORDERED: OMNIPAQUE 350 MG/ML, 75ML BOTTLE ONE (17:12)
[2017-12-22 19:36] VITALS: BP 126/81
[2017-12-22] MEDS: NICOTINE 7 MG/24 HR PATCH.TD24 TD SCH (20:20)
[2017-12-23 03:09] VITALS: BP 127/83
[2017-12-23] MEDS: VANCOMYCIN 2,300 MG in SODIUM CHLORIDE 0.9% 500 ML IV SCH ×2 (04:07→22:34)
[2017-12-23] MEDS: HEPARIN 5,000 UNITS/ML, 1ML SQ SCH ×3 (05:38→20:51)
[2017-12-23] MEDS: HYDROcodone/APAP 5/325 TABLET PO PRN ×3 (05:39→18:06)
[2017-12-23] MEDS: KETOROLAC 30 MG/1 ML IV PRN ×3 (05:39→18:06)
[2017-12-23 07:18] VITALS: BP 134/86
[2017-12-23] MEDS: metFORMIN 500 MG TABLET PO SCH ×2 (07:45→15:49)
[2017-12-23] MEDS: SENNA/DOCUSATE TABLET PO SCH (07:45)
[2017-12-23] MEDS: PROPRANOLOL 20 MG TABLET PO SCH ×2 (07:45→20:51)
[2017-12-23] MEDS: SODIUM CHLORIDE FLUSH 10ML SYR IVF SCH ×2 (07:46→20:51)
[2017-12-23] MEDS: CEFAZOLIN 2,000 MG in SODIUM CHLORIDE 0.9% 50 ML IVPB SCH ×2 (08:20→15:50)
[2017-12-23] MEDS: DIPHENHYDRAMINE 25 MG CAPSULE PO PRN ×2 (08:28→21:12)
[2017-12-23 13:01] VITALS: BP 126/82
[2017-12-23 19:24] VITALS: BP 150/89
[2017-12-23] MEDS: NICOTINE 7 MG/24 HR PATCH.TD24 TD SCH (20:45)
[2017-12-24] MEDS: HYDROcodone/APAP 5/325 TABLET PO PRN ×4 (00:09→20:04)
[2017-12-24] MEDS: KETOROLAC 30 MG/1 ML IV PRN ×4 (00:10→20:04)
[2017-12-24] MEDS: CEFAZOLIN 2,000 MG in SODIUM CHLORIDE 0.9% 50 ML IVPB SCH ×3 (01:25→16:17)
[2017-12-24 02:05] VITALS: BP 143/88
[2017-12-24] MEDS: HEPARIN 5,000 UNITS/ML, 1ML SQ SCH ×3 (05:50→22:19)
[2017-12-24 07:37] VITALS: BP 134/80
[2017-12-24] MEDS: metFORMIN 500 MG TABLET PO SCH ×2 (08:10→17:23)
[2017-12-24] MEDS: PROPRANOLOL 20 MG TABLET PO SCH ×2 (08:11→20:04)
[2017-12-24] MEDS: SODIUM CHLORIDE FLUSH 10ML SYR IVF SCH ×2 (08:11→20:05)
[2017-12-24] MEDS: SENNA/DOCUSATE TABLET PO SCH (08:11)
[2017-12-24] MEDS: DIPHENHYDRAMINE 25 MG CAPSULE PO PRN ×2 (10:09→20:04)
[2017-12-24 13:16] VITALS: BP 127/84
[2017-12-24] MEDS: VANCOMYCIN 2,300 MG in SODIUM CHLORIDE 0.9% 500 ML IV SCH (16:53)
[2017-12-24 18:56] VITALS: BP 136/85
[2017-12-24] MEDS: NICOTINE 7 MG/24 HR PATCH.TD24 TD SCH (19:50)
[2017-12-25] MEDS: CEFAZOLIN 2,000 MG in SODIUM CHLORIDE 0.9% 50 ML IVPB SCH ×2 (00:35→08:15)
[2017-12-25 01:38] VITALS: BP 135/84
[2017-12-25] MEDS: HYDROcodone/APAP 5/325 TABLET PO PRN ×3 (02:04→14:25)
[2017-12-25] MEDS: KETOROLAC 30 MG/1 ML IV PRN ×3 (02:04→14:24)
[2017-12-25 07:02] VITALS: BP 129/80
[2017-12-25] MEDS: HEPARIN 5,000 UNITS/ML, 1ML SQ SCH ×2 (07:30→14:22)
[2017-12-25] MEDS: metFORMIN 500 MG TABLET PO SCH (08:15)
[2017-12-25] MEDS: PROPRANOLOL 20 MG TABLET PO SCH (08:16)
[2017-12-25] MEDS: SENNA/DOCUSATE TABLET PO SCH (08:16)
[2017-12-25] MEDS: SODIUM CHLORIDE FLUSH 10ML SYR IVF SCH (08:16)
[2017-12-25] MEDS ORDERED: VANCOMYCIN 1,900 MG in SODIUM CHLORIDE 0.9% 250 ML IV SCH (10:00)
[2017-12-25 12:53] VITALS: BP 130/79
[2017-12-25] MEDS ORDERED: AMOX1TAB64 PO (14:18)
[2017-12-25] MEDS ORDERED: SULF1TAB24 PO (14:18)
== END 2017-12-25 15:53 | disposition home or self-care (01) | DRG 638 ==
LOC: ED 17:40 → EDIP 18:25 → 4NOR 19:37
PROVIDERS: ADMIT Internal Medicine; ATTEND Internal Medicine
PROC: 0H91XZZ Drainage of Face Skin, External Approach (ICD-10-PCS; principal; 2017-12-20)
DX: E11.69 Type 2 diabetes mellitus with other specified complication (principal); L03.116 Cellulitis of left lower limb; L03.213 Periorbital cellulitis; M86.8X7 Other osteomyelitis, ankle and foot; E78.00 Pure hypercholesterolemia, unspecified; B95.62 Methicillin resistant Staphylococcus aureus infection as the cause of diseases classified elsewhere; I10 Essential (primary) hypertension; F17.210 Nicotine dependence, cigarettes, uncomplicated; B18.2 Chronic viral hepatitis C; L72.3 Sebaceous cyst; J32.0 Chronic maxillary sinusitis; Z89.422 Acquired absence of other left toe(s); Z98.41 Cataract extraction status, right eye; Z98.42 Cataract extraction status, left eye; Z59.0 Homelessness; Z83.3 Family history of diabetes mellitus; Z79.84 Long term (current) use of oral hypoglycemic drugs; Z79.899 Other long term (current) drug therapy; Z91.19 Patient's noncompliance with other medical treatment and regimen; Z71.3 Dietary counseling and surveillance
CPT/HCPCS: 10060; 36415; 70487; 80048; 80053; 80202; 82040; 83036; 83605; 83735; 84100; 85025; 85651; 86141; 87040; 87077; 87147; 87186; 93306; 96374; 96375; A9585; G0378; J0295; J0690; J1644; J1885; J2543; J3370; Q9967; J7040; J7050; Q0163

== ENCOUNTER → 2017-12-30 | Outpatient (CLI) | payer MEDICAID ==
[~2017-12-30] MED LIST changes: +AMOX1TAB64 PO; +METFO; +METFORMIN; +SULF1TAB24 PO
== END | disposition home or self-care (01) ==
LOC: WOUND 12:42
PROVIDERS: ATTEND Internal Medicine
DX: E11.621 Type 2 diabetes mellitus with foot ulcer (principal); L97.512 Non-pressure chronic ulcer of other part of right foot with fat layer exposed; L97.412 Non-pressure chronic ulcer of right heel and midfoot with fat layer exposed; E11.36 Type 2 diabetes mellitus with diabetic cataract; E11.65 Type 2 diabetes mellitus with hyperglycemia; E11.69 Type 2 diabetes mellitus with other specified complication; M86.172 Other acute osteomyelitis, left ankle and foot; I11.9 Hypertensive heart disease without heart failure; F32.9 Major depressive disorder, single episode, unspecified; F41.1 Generalized anxiety disorder; F17.210 Nicotine dependence, cigarettes, uncomplicated; G89.29 Other chronic pain; E78.00 Pure hypercholesterolemia, unspecified; E66.9 Obesity, unspecified; Z68.29 Body mass index [BMI] 29.0-29.9, adult; Z86.19 Personal history of other infectious and parasitic diseases
CPT/HCPCS: 11042; 97597; 99215

== ENCOUNTER 2018-01-01 16:50 | Emergency (ER) | payer MEDICAID ==
[~2018-01-01] VITALS: Ht 193 cm; Wt 106.0 kg
[2018-01-01 16:55] VITALS: BP 160/95
[2018-01-01] MEDS ORDERED: HYDROcodone/APAP 5/325 TABLET PO STA (17:22)
[2018-01-01] MEDS ORDERED: HYDROcodone/APAP 5/325 TABLET ONE (17:31)
== END 2018-01-01 17:58 | disposition home or self-care (01) ==
LOC: ED 17:57
DX: B86 Scabies (principal); G89.29 Other chronic pain; M79.671 Pain in right foot; E78.00 Pure hypercholesterolemia, unspecified; I10 Essential (primary) hypertension; E11.9 Type 2 diabetes mellitus without complications; F17.200 Nicotine dependence, unspecified, uncomplicated
CPT/HCPCS: 82962; 99283

== ENCOUNTER 2018-01-02 16:13 | Emergency (ER) | payer MEDICAID ==
[~2018-01-02] VITALS: Ht 193 cm; Wt 105.3 kg
[2018-01-02 16:19] VITALS: BP 144/94
== END 2018-01-02 16:45 | disposition left against medical advice (07) ==
LOC: ED 16:39
DX: M79.671 Pain in right foot (principal); M79.672 Pain in left foot; E11.9 Type 2 diabetes mellitus without complications
CPT/HCPCS: 99281

== ENCOUNTER → 2018-01-08 | Outpatient (CLI) | payer MEDICAID | END | disposition home or self-care (01) | LOC: WOUND 13:38 | PROVIDERS: ATTEND Internal Medicine | DX: E11.621 Type 2 diabetes mellitus with foot ulcer (principal); L97.522 Non-pressure chronic ulcer of other part of left foot with fat layer exposed; L97.412 Non-pressure chronic ulcer of right heel and midfoot with fat layer exposed; E11.36 Type 2 diabetes mellitus with diabetic cataract; E11.65 Type 2 diabetes mellitus with hyperglycemia; E11.69 Type 2 diabetes mellitus with other specified complication; M86.372 Chronic multifocal osteomyelitis, left ankle and foot; M86.172 Other acute osteomyelitis, left ankle and foot; I11.9 Hypertensive heart disease without heart failure; F32.9 Major depressive disorder, single episode, unspecified; F41.1 Generalized anxiety disorder; F17.210 Nicotine dependence, cigarettes, uncomplicated; G89.29 Other chronic pain; E78.00 Pure hypercholesterolemia, unspecified; B18.2 Chronic viral hepatitis C; E66.9 Obesity, unspecified; Z68.29 Body mass index [BMI] 29.0-29.9, adult; Z89.422 Acquired absence of other left toe(s) | CPT/HCPCS: 97597 ==

== ENCOUNTER → 2018-01-15 | Outpatient (CLI) | payer MEDICAID | END | disposition home or self-care (01) | LOC: WOUND 13:13 | PROVIDERS: ATTEND Internal Medicine | DX: T87.89 Other complications of amputation stump (principal); E11.621 Type 2 diabetes mellitus with foot ulcer; L97.522 Non-pressure chronic ulcer of other part of left foot with fat layer exposed; L97.512 Non-pressure chronic ulcer of other part of right foot with fat layer exposed; E11.36 Type 2 diabetes mellitus with diabetic cataract; E11.65 Type 2 diabetes mellitus with hyperglycemia; E11.69 Type 2 diabetes mellitus with other specified complication; M86.372 Chronic multifocal osteomyelitis, left ankle and foot; I11.9 Hypertensive heart disease without heart failure; F32.9 Major depressive disorder, single episode, unspecified; F41.1 Generalized anxiety disorder; F17.210 Nicotine dependence, cigarettes, uncomplicated; G89.29 Other chronic pain; E78.00 Pure hypercholesterolemia, unspecified; E66.9 Obesity, unspecified; Z68.29 Body mass index [BMI] 29.0-29.9, adult; Z89.422 Acquired absence of other left toe(s); Z79.84 Long term (current) use of oral hypoglycemic drugs; Z86.19 Personal history of other infectious and parasitic diseases; Y83.5 Amputation of limb(s) as the cause of abnormal reaction of the patient, or of later complication, without mention of misadventure at the time of the procedure | CPT/HCPCS: 11042 ==

== ENCOUNTER → 2018-02-17 | Outpatient (CLI) | payer MEDICAID | END | disposition home or self-care (01) | LOC: WOUND 13:40 | PROVIDERS: ATTEND Internal Medicine | DX: T87.89 Other complications of amputation stump (principal); E11.621 Type 2 diabetes mellitus with foot ulcer; L97.512 Non-pressure chronic ulcer of other part of right foot with fat layer exposed; E11.65 Type 2 diabetes mellitus with hyperglycemia; L97.522 Non-pressure chronic ulcer of other part of left foot with fat layer exposed; E11.69 Type 2 diabetes mellitus with other specified complication; M86.372 Chronic multifocal osteomyelitis, left ankle and foot; E11.36 Type 2 diabetes mellitus with diabetic cataract; I11.9 Hypertensive heart disease without heart failure; F41.1 Generalized anxiety disorder; F32.9 Major depressive disorder, single episode, unspecified; F17.210 Nicotine dependence, cigarettes, uncomplicated; E78.00 Pure hypercholesterolemia, unspecified; G89.29 Other chronic pain; E66.9 Obesity, unspecified; Z68.29 Body mass index [BMI] 29.0-29.9, adult; Z89.422 Acquired absence of other left toe(s); Z91.14 Patient's other noncompliance with medication regimen; Z86.19 Personal history of other infectious and parasitic diseases; Y83.5 Amputation of limb(s) as the cause of abnormal reaction of the patient, or of later complication, without mention of misadventure at the time of the procedure | CPT/HCPCS: 99214 ==

== ENCOUNTER 2018-03-20 14:05 | Emergency (ER) | payer MEDICAID ==
[~2018-03-20] VITALS: Ht 193 cm; Wt 109.0 kg
[~2018-03-20 14:05] MED LIST changes: +HYDR12.517 PO; -HYDR12.53 PO
[2018-03-20] MEDS ORDERED: ONDANSETRON ODT 4 MG ONE (14:26)
[2018-03-20] MEDS ORDERED: IBUPROFEN 200 MG TABLET ONE (14:29)
[2018-03-20] MEDS ORDERED: ONDANSETRON ODT 4 MG PO ONE (14:30)
[2018-03-20] MEDS ORDERED: IBUPROFEN 200 MG TABLET PO ONE (14:30)
[2018-03-20 14:39] LABS: BASOPHILS # (AUTO) 0.02 x10^3/uL (0-0.1); BASOPHILS % (AUTO) 0 % (0-1); EOSINOPHILS # (AUTO) 0.07 x10^3/uL (0-0.4); EOSINOPHILS % (AUTO) 1 % (1-7); LYMPHOCYTES # (AUTO) 1.57 x10^3/uL (1-3.4); LYMPHOCYTES % (AUTO) 29 % (22-44); MD NO; MEAN CORPUSCULAR HEMOGLOBIN 30.6 pg (27.5-34.5); MEAN CORPUSCULAR HGB CONC 34.2 g/dL (33.2-36.2); MEAN CORPUSCULAR VOLUME 89.3 fL (81-97); MEAN PLATELET VOLUME 7.4 fL (7.4-10.4); MONOCYTES # (AUTO) 0.28 x10^3/uL (0.2-0.8); MONOCYTES % (AUTO) 5 % (2-9); NEUTROPHILS # (AUTO) 3.56 x10^3/uL (1.8-6.8); NEUTROPHILS % (AUTO) 65 % (42-75); PLATELET COUNT 215 x10^3/uL (130-400); RED CELL DISTRIBUTION WIDTH 13.9 % (9.4-14.8)
[2018-03-20 14:49] LABS: ALBUMIN 3.8 g/dL (3.4-5.0); ANION GAP 7 mmol/L (5-15); CALCIUM 8.1 mg/dL (8.5-10.1); CHLORIDE 106 mmol/L (98-107); CREATININE 0.89 mg/dL (0.7-1.3)
[2018-03-20 19:54] VITALS: BP 120/74
== END 2018-03-20 19:56 | disposition home or self-care (01) ==
LOC: ED 17:01
DX: F41.1 Generalized anxiety disorder (principal); F10.129 Alcohol abuse with intoxication, unspecified; F32.9 Major depressive disorder, single episode, unspecified; E78.00 Pure hypercholesterolemia, unspecified; I10 Essential (primary) hypertension; E11.9 Type 2 diabetes mellitus without complications; Y90.9 Presence of alcohol in blood, level not specified
CPT/HCPCS: 36415; 80048; 82040; 85025; 93005; 99284; Q0162

== ENCOUNTER 2019-08-20 20:25 | Emergency (ER) | payer MEDICAID ==
[~2019-08-20 20:25] MED LIST changes: -HYDR50TA13 PO; +HYDR50TA99 PO; -NAPR220C PO; +NAPR220C62 PO; -PROP10TA PO; +PROP10TA16 PO; +SIMV20TA19 PO; -SIMV20TA3 PO
== END 2019-08-20 20:40 | disposition left against medical advice (07) ==
LOC: ED 20:26
DX: M79.671 Pain in right foot (principal); M79.672 Pain in left foot; M79.675 Pain in left toe(s); M79.674 Pain in right toe(s); Z53.21 Procedure and treatment not carried out due to patient leaving prior to being seen by health care provider